=== PATIENT | male | born 1970 | race Caucasian/White ===

== ENCOUNTER 2019-01-11 10:45 | Emergency (ER) | payer BC ==
--- NOTE | 2019-01-11 11:12 | ED ---
HPI Chest Pain - HPI Summary HPI Summary: This patient is a 48 year old male presenting to [facility] with a chief complaint of intermittent chest pain since ten days ago. He reports SOB when he has the chest pain. He saw his and PCP did not have any findings, but to come here if it kept happening. He states it mostly happens at night when he is sleeping and shortly after he wakes up. He describes the pain as a burning pain and currently is not experiencing this pain. He has a Hx of GERD, and HTN. Both sides of his family have Cardiac Hx and his mother from an MA at his age. - History of Current Complaint Chief Complaint: EDChestPainROMI Time Seen by Provider: 01/11/19 10:55 Hx Obtained From: Patient Timing: Intermittent, Lasting Hours Initial Severity: Moderate Current Severity: None Pain Intensity: 0 Pain Scale Used: 0-10 Numeric Chest Pain Radiates: No Character: Burning - Allergy/Home Medications Allergies/Adverse Reactions: Allergies Allergy/AdvReac Type Severity Reaction Status Date / Time escitalopram [From Lexapro] Allergy Unknown Verified 01/11/19 10:47 Reaction Details Home Medications: Home Medications Lisinopril/HCTZ 10/12.5(NF) [Zestoretic 10/12.5(NF)] 12.5 mg PO DAILY 01/11/19 [ History Confirmed 01/11/19] Rosuvastatin (NF) [Crestor (NF)] 5 mg PO 1700 01/11/19 [History Confirmed ] PMH/Surg Hx/FS Hx/Imm Hx Endocrine/Hematology History: Reports: Hx Thyroid Disease Denies: Hx Diabetes Cardiovascular History: Reports: Hx Hypercholesterolemia, Hx Hypertension Denies: Hx Pacemaker/ICD, Hx Peripheral Vascular Disease Musculoskeletal History: Denies: Hx Arthritis, Hx Rheumatoid Arthritis, Hx Osteoporosis Sensory History: Denies: Hx Cataracts, Hx Contacts or Glasses, Hx Glaucoma, Hx Hearing Aid Opthamlomology History: Denies: Hx Cataracts, Hx Contacts or Glasses, Hx Glaucoma Neurological History: Denies: Hx Headaches, Hx Seizures, Hx Transient Ischemic Attacks (TIA) Psychiatric History: Reports: Hx Anxiety, Hx Panic Disorder Denies: Hx Depression - Surgical History Surgery Procedure, Year, and Place: EAR TUBES Infectious Disease History: No Infectious Disease History: Denies: Traveled Outside the [place] in Last 30 Days - Family History Known Family History: Positive: Cardiac Disease - Mother - Social History Alcohol Use: Occasionally Hx Substance Use: No Substance Use Type: Reports: None Review of Systems Positive: Chest Pain Positive: Shortness Of Breath All Other Systems Reviewed And Are Negative: Yes Physical Exam - Summary Physical Exam Summary: VITAL SIGNS: Reviewed. GENERAL: Patient is a well-developed and nourished MALE who is lying comfortable in the stretcher. Patient is not in any acute respiratory distress. HEAD AND FACE: No signs of trauma. No ecchymosis, hematomas or skull depressions. No sinus tenderness. EYES: PERRLA, EOMI x 2, No injected conjunctiva, no nystagmus. EARS: Hearing grossly intact. Ear canals and tympanic membranes are within normal limits. MOUTH: Oropharynx within normal limits. NECK: Supple, trachea is midline, no adenopathy, no JVD, no carotid bruit, no c- spine tenderness, neck with full ROM. CHEST: Symmetric, no tenderness at palpation LUNGS: Clear to auscultation bilaterally. No wheezing or crackles. CVS: Regular rate and rhythm, S1 and S2 present, no murmurs or gallops appreciated. ABDOMEN: Soft, non-tender. No signs of distention. No rebound no guarding, and no masses palpated. Bowel sounds are normal. EXTREMITIES: FROM in all major joints, no edema, no cyanosis or clubbing. NEURO: Alert and oriented x 3. No acute neurological deficits. Speech is normal and follows commands. SKIN: Dry and warm Triage Information Reviewed: Yes Vital Signs On Initial Exam: Initial Vitals Temp Pulse Resp BP Pulse Ox 97.4 F 93 18 171/96 97 01/11/19 10:48 01/11/19 10:48 01/11/19 10:48 01/11/19 10:48 01/11/19 10:48 Vital Signs Reviewed: Yes Diagnostics - Vital Signs Vital Signs Temp Pulse Resp BP Pulse Ox 01/11/19 10:48 97.4 F 93 18 171/96 97 - Laboratory Result Diagrams: 01/11/19 10:48 01/11/19 10:48 Lab Statement: Any lab studies that have been ordered have been reviewed, and results considered in the medical decision making process. - Radiology CXR Radiology Interpretation Completed By: Radiologist Summary of Radiographic Findings: No radiographic evidence for acute cardiopulmonary abnormality on this portable chest x-ray. ED Provider has reviewed this report. - EKG 1059 Cardiac Rate: Tachycardia EKG Rhythm: Sinus Tachycardia - [address] Segment: Normal Ectopy: None Summary of EKG Findings: Normal axis, no ST-elevations. Re-Evaluation - Re-Evaluation First Eval Re-Evaluation Time: 14:18 Comment: Discussed results and plan for discharge with patient. Chest Pain Course/Dx - Course Assessment/Plan: This patient is a 48-year-old male with past medical history significant for GERD, hypertension, and hypothyroidism. He presents to the emergency department with a chief complaint of having chest pain burning like pain every morning approximately 1.30 in the morning waking him up from his sleep. This the symptoms have been present for at least one week. He has seen his primary care physician Dr. Tin Lee to time this week where he thinks that the patient has GERD. Patient was placed in a manager cardiac cath, IV access was obtained. EKG shows a normal sinus rhythm without any ST elevation. 12:20 PM reassessment: Patient is lying comfortable, reports no chest pain and has no other complaints. Blood test results without any significant abnormality except for RBCs of 5.5, troponin #1 is 0.00. Chest x-ray impression: No radiographic evidence for acute cardiopulmonary abnormality on this portable chest x-ray. Second troponin 4 hours apart is also 0.00. The heart score is equal to 3 therefore has a low suspicion for coronary artery disease. The patient is not hypoxic or tachycardic and therefore have no suspicion for pulmonary embolism. Patient doesnt have any chest pain radiating to the back or he is not hypertensive therefore have no suspicion for dissection. Patient reports that all symptoms have resolved. Because the patient has no significant comorbidities and no family history of cardiovascular disease at his age the patient will be discharged home with follow up of PMD. I discussed all the findings and test results with the patient. Patient was instructed to return to the emergency room immediately if any of the symptoms return or worsens. Patient understands and agrees. Plan of care was discussed with the patient and patient understands and agrees. All questions were answered at patient satisfaction. There were no further complaints or concerns. PE before discharge : CVS: S1 and S2 present. No murmurs appreciated. Abdominal exam before discharge: Soft, non-tender. No signs of distention. No rebound no guarding, and no masses palpated. Bowel sounds are normal. Patient is alert and oriented x 3. Patient is hemodynamically stable. - Chest Pain Differential Diagnosis/HQI/PQRI: Acute MA, ACS, Angina, Aortic Aneurysm, CHF, Chest Wall, GI Disease, Lower Respiratory Infection - Diagnoses Provider Diagnoses: Atypical chest pain Discharge - Sign-Out/Discharge Documenting (check all that apply): Patient Departure - Discharge Patient Received Moderate/Deep Sedation with Procedure: No - Discharge Plan Condition: Stable Disposition: HOME Patient Education Materials: Chest Pain (ED) Referrals: Adria Soria MD [Medical Doctor] - Additional Instructions: Return to ED with any new or worsening symptoms. - Billing Disposition and Condition Condition: STABLE Disposition: Home - Attestation Statements Document Initiated by Crescencio: Yes Documenting Scribe: Markell Wolfe Provider For Whom Crescencio is Documenting (Include Credential): Jus Jacinto MD Scribe Attestation: Markell Drummond scribed for Jus Jacinto MD on 01/11/19 at 2059. Scribe Documentation Reviewed: Yes Provider Attestation: The documentation as recorded by the Markell zambrano accurately reflects the service I personally performed and the decisions made by , Jus Jacinto MD Status of Scribe Document: Viewed
--- OUTSIDE RECORDS SUMMARY | 2019-01-11 11:12 | XMS REPORT | Continuity of Care Document ---
:1970 External Reference #:[id number] Author Name YennyCarlos mooreidi Care Team Providers Name Role Phone Karen Zamarripa MD Primary Care Physician Unavailable Payers Date Identification Numbers Payment Provider Subscriber Effective: 2015 Policy Number: [id number] [employer] Anitha Byrd PayID: [id number] [address] [address] [place] [address] Effective: 2010 Policy Number: [id number] [place] Jamie Richards Onset: 2010 PayID: [id number] [id number] [place] [address] Onset: 2013 Policy Number: [facility] Insurance [facility] Jamie Richards [id number] PayID: [id number] [address] [address] [place] [address] Advance Directives Description No Information Available Problems Active Problems Provider Date Essential hypertension Adria Soria M.D.,FACP Onset: 07/31/2010 Atypical depressive disorder Adria Soria M.D.,FACP Onset: 01/30/2011 Chronic sinusitis Adria Soria M.D.,FACP Onset: 11/01/2011 Hypothyroidism Zainab Gutierrez, N.P. Onset: 11/27/2011 Pure hypercholesterolemia Zainab Gutierrez, N.P. Onset: 11/27/2011 Inactive Problems Tachycardia Clark Jensen M.D. Onset: 12/25/2011 Inactive: 11/24/2015 Palpitations Martín HenaoD. 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 Barajas (GI) Mixed hyperlipidemia Guru Sanchez M.D. Onset: 08/01/2016 Inactive: 08/13/2018 Family History Date Family Member(s) Observation Comments General Heart Disease General Cancer General Diabetes Father HX Of CAD Father VA x 2 Mother due to Mother Of () - Document: VA At Age 56 10/17/07 - Prog Note - Casandra Mother Mother With CABG At Age 48 Document: 10/17/07 - Prog Note - Casandra First Son Hemophilia First Son vonwillebrands First Daughter Hemophilia First Daughter vonwillebrand Siblings 2 First Brother Hypertension First Brother Hypercholesterolemia Maternal Grandmother due to Breast () - Document: Cancer 10/17/07 - Prog Note - Casandra Social History Type Date Description Comments Sex Unknown Marital Status Significant Other 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 Tobacco Use Start: Unknown End: Former Cigarette Smoker Quit April 2008 Unknown Smoking Status Reviewed: 12/31/18 Former Cigarette Smoker Quit April 2008 ETOH Use 08/13/2018 consumes 1-2 beers per day Recreational Drug Use Denies Drug Use Tobacco Use Start: Unknown End: Patient is a former Unknown smoker Exercise Type/Frequency Exercises sporadically Allergies, Adverse Reactions, Alerts Active Allergies Reaction Severity Comments Date Lexapro dizziness, lethargic 10/17/2009 Simvastatin myalgias 01/17/2017 Inactive Allergies NKDA 10/17/2007 Medications Active Medications SIG Qnty Indications Ordering Date Provider Levothyroxine Sodium Take one tablet 30tabs E03.9 Karen Zamarripa MD 2018 daily 137mcg Tablets Fluticasone Propionate 1 act each 16gm J01.90 Adria Wyman 03/06/2017 nostril twice Jorge Soria,FACP 50mcg/Act Suspension daily prn Clobetasol Propionate topical qd prn 30gm Adria Wyman 01/17/2017 E for RT Jorge Soria,FACP 0.05% Cream elbow/knee Rosuvastatin Calcium take 1 tablet by 90tabs Adria Wyman 01/17/2017 5mg mouth every Jorge Soria,FACP Tablets evening at bedtime Vitamin D 1 by mouth every dAria Wyman 11/24/2015 (Cholecalciferol) day Jorge Soria,FACP 1000Unit Capsules Lisinopril-Hydrochloro Take 1 Tablet By 90tabs I10 Adria Wyman 11/24/2015 thiazide Mouth Every Jorge Soria,FACP 10-12.5mg Morning Tablets Omeprazole take 1 capsule 90caps Nahed Kevin MD 07/12/2008 40mg Capsules by mouth every DR day Multiple Vitamin 1 po qd 100tabs Unknown Tablets History Medications Levothyroxine Sodium 1 by mouth every 90tabs E03.9 Nahed Kevin, 2017 - 150mcg day 12/31/2018 Tablets Amoxicillin/Clavulanate by mouth twice a 20tabs Adria Wyman 08/13/2018 - Potassium day Estella, 08/23/2018 875-125mg Tablets Mini.DMei,FACP Levothyroxine Sodium 1 by mouth every 90tabs E03.9 Adria Wyman 2017 - 137mcg day Estella, 08/13/2018 Tablets Jorge,FACP Amoxicillin/Clavulanate 1 by mouth twice a 20tabs L04.0 Guru 08/06/2017 - Potassium day Henrique, 08/16/2017 875-125mg Tablets M.D. Doxycycline Hyclate 1 by mouth twice a 20tabs J01.90 Adria Wyman 2016 - 100mg day [place]ella, 03/25/2017 Tablets Jorge,FACP Medrol medrol dosepack as 1pak Adria Wyman 03/15/2017 - 4mg Tablets directed Estella, 08/13/2018 Jorge,FACP Amoxicillin take 1 tabs 3x 30tabs J01.90 Zsofia 03/06/2017 - 500mg Tablets daily by mouth MARIAH Milian 03/15/2017 daily Azithromycin 2 tab today and 6tabs J01.90 Guru 08/01/2016 - 250mg Tablets then 1tab daily Pachika, 11/20/2016 Jorge Amoxicillin/Clavulanate 1 by mouth twice a 20tabs J20.9 Guru 06/29/2016 - Potassium day Laura, 08/01/2016 875-125mg Tablets Mini.Zamzam Vitamin D 1 cap by mouth per 8caps [place] 02/09/2015 - (Ergocalciferol) week x 8 weeks Jorge Koenig 11/24/2015 [id number] Capsules Azithromycin two tabs day one, 6tabs Iftikhar 02/08/2015 - 250mg Tablets one daily till Jorge Koenig 07/29/2015 gone Amoxicillin/Clavulanate 1 by mouth twice a 28tabs 461.8 Iftikhar 01/07/2015 - Potassium day Jorge Koenig 02/08/2015 875-125mg Tablets Meclizine HCL 1 tablet twice a 30tabs 386.30 Iftikhar 01/07/2015 - 12.5mg Tablets day, as needed Jorge Koenig 02/08/2015 Amoxicillin 1 tab every 12 14caps 461.0 Keegan Garrett, 07/26/2014 - 500mg Capsules hours for 7 days MAT 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 [place], 06/11/2018 Tablets labs need to be Jorge,ZION done harpal Amoxicillin 2 tabs po bid for 40tabs 473.8 Adria Wyman 09/17/2013 - 500mg Tablets 10 days [place], 09/27/2013 Jorge,FACP Fluticasone Propionate 1 spray each 16units 473.8 Adria Wyman 09/17/2013 - nostril in am [place], 09/25/2013 50mcg/Act Suspension Jorge,FACP Lovastatin Take 1 Tablet By 90tabs 272.0 Keegan Garrett, 08/13/2012 - 20mg Tablets Mouth AT Bedtime MAT PUNCHER 11/24/2015 Lisinopril take 1 tablet by 30tabs I10 Adria Wyman 03/13/2012 - 10mg Tablets mouth every day [place], 11/24/2015 Jorge,FACP Lisinopril 1 po qd 401.9 Adria Wyman 03/11/2012 - 10mg Tablets [place], 03/13/2012 Jorge,FACP Levothyroxine Sodium take 1-1/2 tablet 45tabs 244.9 Adria Wyman 2011 - 25mcg by mouth every [place], 10/08/2013 Tablets morning M.DMei,FACP Ativan 1/2-1 po bid prn 10tabs 785.0 Adria Wyman 02/22/2012 - 1mg Tablets [place], 09/25/2013 MOc,FACP Metoprolol Tartrate 1 po bid as needed 180tabs Adria Wyman 02/01/2012 - 25mg for palpitations [place], 09/25/2013 Tablets Jorge,FACP Levothyroxine Sodium take one tablet by 30tabs 244.9 Adria Wyman 2011 - 25mcg mouth in the [place], 02/22/2012 Tablets morning M.Zamzam,FACP Avelox take one pill by 14tabs Hattie 12/26/2011 - 400mg Tablets mouth daily for 7 [place] 12/26/2011 days on, N.P. Clarithromycin 1 po bid for 14 28tabs Adria Wyman 12/18/2011 - 500mg Tablets days [place], 12/26/2011 Jorge,FACP Vivotif Diane 1 cap PO qod x4 4caps Adria Wyman 11/29/2011 - DR Cap Capsules doses; give 1h [place], 12/18/2011 DR before meal w/ M.D.,FACP cold or lukewarm drink; avoid alcohol w/in 1h of each dose; Levothyroxine Sodium 1/2 tablet po qd 30tabs 244.9 Adria Wyman 2011 - 25mcg [place], 01/02/2012 Tablets Jorge,FACP Amoxicillin 1 tab po q8hr x 10 30tabs 382.9 Adria Wyman 11/27/2011 - 500mg Tablets days [place], 12/18/2011 Jorge,FACP Simvastatin take 1 tablet by 30tabs 272.0 Adria Wyman 11/27/2011 - 10mg Tablets mouth at bedtime [place], 08/13/2012 Jorge,FACP Chloroquine Phosphate 1 q week starting 7tabs V65.49 Adria Wyman 2011 - 500mg 1 wk before [place], 02/01/2012 Tablets travel, until 4 M.DMei,FACP wks after Zithromax 2 qd day 1 then 1 6tabs V65.49 Adria Wyman 11/01/2011 - 250mg Tablets po qday [place], 11/27/2011 Jorge,FACP Vitamin D Adria Wyman 01/30/2011 - [place], 12/25/2011 Jorge,FACP Ibuprofen tid prn 90tabs 723.1 Adria Wyman 09/07/2010 - 600mg Tablets [place], 11/08/2010 Jorge,FACP Hydrocodone/Acetaminophen 1 tablet po qid 50tabs 723.1 Adria Wyman 2009 - prn [place], 11/08/2010 5-325mg Tablets Jorge,FACP Budeprion SR 2 tabs po bid 120tabs 296.82 Adria Wyman 07/31/2010 - 100mg Tablets ER [place], 11/01/2011 12HR MOc,FACP Nortriptyline HCL 1 bid po 60caps 309.0 Adria Wyman 11/01/2009 - 25mg Capsules [place], 07/31/2010 Jorge,FACP Nasonex 2 spays each 1units 472.0 Adria Wyman 10/04/2009 - 50mcg/Act Suspension nostril daily [place], 09/17/2013 Jorge,FACP Lisinopril Take 1/2 Tablet By 30tabs 401.9 Adria Wyman 10/04/2009 - 10mg Tablets Mouth Once Daily [place], 03/11/2012 Jorge,FACP Amlodipine Besylate 1 po qd 30tabs 401.9 Adria Wyman 07/01/2009 - 10mg [place], 10/04/2009 Tablets Jorge,FACP Ciprofloxacin HCL si bid x 10 20tabs 530.81 Adria Wyman 12/22/2008 - 500mg Tablets days [place], 07/01/2009 Jorge,FACP Augmentin si bid x 14 28tabs 473.8 Adria Wyman 12/22/2008 - 875mg Tablets days [place], 10/04/2009 Jorge,YASMINEP Amlodipine 1 po qd 10units 401.9 Adria Wyman 12/22/2008 - 5mgM [place], 07/01/2009 Jorge,FACP Amoxicillin 1 tab po bid x 10 20tabs [place]an[place], 07/12/2008 - 875mg Tablets Zamzam Myers M.D. 12/22/2008 Wellbutrin SR 1 PO qd x 3 days 60tabs Adria Wyman 03/02/2008 - 150mg Tablets ER then 1 bid [place], 12/22/2008 12HR Jorge,FACP Potassium Chloride ER 1 po qd 30caps 401.9 Adria Wyman 01/07/2008 - 10Meq [place], 07/01/2009 Capsules ER Jorge,YASMINEP Chantix 1 po bid 60tabs 305.1 Adria Wyman 01/07/2008 - 1mg Tablets [place], 03/02/2008 Jorge,YASMINEP Hydrochlorothiazide 1 qd 90tabs 401.9 Adria Wyman 12/08/2007 - 12.5mg [place], 12/22/2008 Tablets Jorge,YASMINEP Chantix as directed 1Pack 305.1 Adria Wyman 12/08/2007 - Starting Month Pack [place], 01/07/2008 Tablets Jorge,FACP Triamcinolone Acetonide apply bid to 45Grams 782.1 Adria Wyman 2007 - 0.1% affected area prn [place], 11/01/2011 Cream Jorge,FACP Cefuroxime Axetil 1 tablet by mouth 20tabs Unknown - 250mg Tablets twice daily for 10 12/18/2011 days Biaxin 1 bid po 20tabs Unknown - 500mg Tablets 12/25/2011 Fish Oil 1 po qd Unknown - Capsules 01/07/2015 Vitamin D 1 po qod Unknown - 2000Unit 09/25/2013 Hyoscyamine Sulfate ER 1 tablet daily prn Unknown - 0.375mg 08/13/2018 Tablets ER 12HR Medications Administered in Office Medication SIG Qnty Indications Ordering Provider Date Depomedrol 80MG Bell Aguila M.D. 09/25/2013 Injection Immunizations CPT Code Status Date Vaccine Reaction Lot # [id number] Given 08/20/2018 Influenza Virus Vaccine, No reaction noted .. [id number] Quadrivalent, Split, hh Preservative Free [id number] Given 01/17/2017 Tdap - [id number] Tetanus/Diptheria/Acellula r Pertussis [id number] Given 09/17/2013 Fluvirin Im 3Yrs And Older [id number] 09780 Given 11/01/2011 Influenza Virus 3Yrs & [id number] Over [id number] Given 11/01/2011 Hepatitis A Vaccine Adult [id number] Dosage 69220 Given 07/31/2010 Influenza Virus 3Yrs & [id number] Over Vital Signs Date Vital Result Comment 12/31/2018 11:46am Height 71 inches 5'11" Weight 235.00 lb Heart Rate 103 /min BP Systolic Sitting 135 mmHg BP Diastolic Sitting 93 mmHg Body Temperature 98.4 F O2 % BldC Oximetry 97 % BMI (Body Mass Index) 32.8 kg/m2 12/12/2018 2:16pm Height 71 inches 5'11" Weight 232.00 lb Heart Rate 82 /min BP Systolic Sitting 140 mmHg BP Diastolic Sitting 86 mmHg Body Temperature 97.7 F O2 % BldC Oximetry 96 % BMI (Body Mass Index) 32.4 kg/m2 08/20/2018 4:26pm Height 71 inches 5'11" Weight 233.00 lb Heart Rate 82 /min BP Systolic 150 mmHg BP Diastolic 86 mmHg BP Systolic Recheck 128 mmHg BP Diastolic Recheck 86 mmHg O2 % BldC Oximetry 98 % BMI (Body Mass Index) 32.5 kg/m2 08/13/2018 9:26am Height 71 inches 5'11" Weight 233.00 lb Heart Rate 100 /min BP Systolic Sitting 128 mmHg BP Diastolic Sitting 82 mmHg Body Temperature 97.5 F O2 % BldC Oximetry 95 % BMI (Body Mass Index) 32.5 kg/m2 08/06/2017 11:14am Weight 228.25 lb Heart Rate 100 /min BP Systolic Sitting 136 mmHg BP Diastolic Sitting 82 mmHg Body Temperature 98.1 F O2 % BldC Oximetry 97 % 03/15/2017 2:40pm Weight 226.00 lb Heart Rate 80 /min BP Systolic Sitting 138 mmHg BP Diastolic Sitting 76 mmHg Body Temperature 98.0 F O2 % BldC Oximetry 98 % 03/06/2017 3:40pm Weight 225.00 lb Heart Rate 89 /min BP Systolic Sitting 160 mmHg BP Diastolic Sitting 86 mmHg Body Temperature 98.2 F O2 % BldC Oximetry 98 % 01/17/2017 3:23pm Height 70 inches 5'10" Weight 220.25 lb Heart Rate 95 /min BP Systolic Sitting 154 mmHg BP Diastolic Sitting 82 mmHg BP Systolic Recheck 118 mmHg BP Diastolic Recheck 82 mmHg Body Temperature 98.0 F O2 % BldC Oximetry 97 % BMI (Body Mass Index) 31.6 kg/m2 08/01/2016 1:23pm Weight 222.00 lb Heart Rate 72 /min BP Systolic Sitting 138 mmHg BP Diastolic Sitting 84 mmHg Respiratory Rate 15 /min Body Temperature 98.3 F O2 % BldC Oximetry 98 % 06/29/2016 3:40pm Height 71 inches 5'11" Weight 222.12 lb Heart Rate 88 /min BP Systolic Sitting 130 mmHg BP Diastolic Sitting 74 mmHg Body Temperature 97.8 F O2 % BldC Oximetry 98 % BMI (Body Mass Index) 31.0 kg/m2 03/02/2016 2:53pm Height 71 inches 5'11" Weight 225.00 lb Heart Rate 88 /min BP Systolic Sitting 132 mmHg BP Diastolic Sitting 80 mmHg O2 % BldC Oximetry 98 % BMI (Body Mass Index) 31.4 kg/m2 11/24/2015 10:23am Height 71 inches 5'11" Weight 229.38 lb Heart Rate 88 /min BP Systolic Sitting 130 mmHg BP Diastolic Sitting 94 mmHg Body Temperature 97.0 F O2 % BldC Oximetry 96 % BMI (Body Mass Index) 32.0 kg/m2 02/08/2015 10:53am Height 71 inches 5'11" Weight 226.50 lb Heart Rate 90 /min BP Systolic Sitting 136 mmHg BP Diastolic Sitting 80 mmHg Body Temperature 97.0 F O2 % BldC Oximetry 98 % BMI (Body Mass Index) 31.6 kg/m2 01/07/2015 3:11pm Height 71 inches 5'11" Weight 227.38 lb Heart Rate 100 /min BP Systolic Sitting 118 mmHg BP Diastolic Sitting 80 mmHg Body Temperature 99.6 F O2 % BldC Oximetry 98 % BMI (Body Mass Index) 31.7 kg/m2 07/26/2014 10:34am Weight 225.00 lb Heart Rate 77 /min BP Systolic Sitting 153 mmHg BP Diastolic Sitting 101 mmHg Body Temperature 98.2 F O2 % BldC Oximetry 98 % 10/08/2013 1:48pm Weight 210.00 lb Heart Rate 76 /min BP Systolic Sitting 138 mmHg BP Diastolic Sitting 78 mmHg 09/25/2013 1:30pm Height 71 inches 5'11" Weight 211.00 lb Heart Rate 81 /min BP Systolic 127 mmHg BP Diastolic 80 mmHg BMI (Body Mass Index) 29.4 kg/m2 09/18/2013 9:46am Height 71 inches 5'11" Weight 212.00 lb Heart Rate 73 /min BP Systolic 144 mmHg BP Diastolic 96 mmHg BMI (Body Mass Index) 29.6 kg/m2 09/17/2013 9:04am Weight 212.75 lb Heart Rate 74 /min BP Systolic Sitting 142 mmHg BP Diastolic Sitting 88 mmHg Body Temperature 97.7 F O2 % BldC Oximetry 98 % 02/22/2012 1:11pm Height 70 inches 5'10" Weight 209.00 lb Heart Rate 80 /min BP Systolic Sitting 130 mmHg BP Diastolic Sitting 84 mmHg BMI (Body Mass Index) 30.0 kg/m2 02/01/2012 4:03pm Height 70 inches 5'10" Weight 204.00 lb Heart Rate 76 /min BP Systolic Sitting 132 mmHg BP Diastolic Sitting 84 mmHg BMI (Body Mass Index) 29.3 kg/m2 01/18/2012 10:10am Height 70 inches 5'10" Weight 203.00 lb with coat and shoes Heart Rate 72 /min BP Systolic 138 mmHg BP Diastolic 70 mmHg BMI (Body Mass Index) 29.1 kg/m2 12/25/2011 2:22pm Height 70 inches 5'10" Weight 202.00 lb Heart Rate 76 /min BP Systolic Sitting 120 mmHg right arm, left arm 112/86 BP Diastolic Sitting 86 mmHg right arm, left arm 112/86 BP Systolic Standing 140 mmHg right arm BP Diastolic Standing 86 mmHg right arm BMI (Body Mass Index) 29.0 kg/m2 11/27/2011 1:46pm Height 70 inches 5'10" Weight 200.00 lb Heart Rate 92 /min BP Systolic Sitting 132 mmHg BP Diastolic Sitting 80 mmHg BMI (Body Mass Index) 28.7 kg/m2 11/13/2011 11:25am Height 70.5 inches 5'10.50" Weight 199.25 lb Heart Rate 72 /min BP Systolic Sitting 128 mmHg BP Diastolic Sitting 92 mmHg BMI (Body Mass Index) 28.2 kg/m2 11/01/2011 9:58am Height 70.25 inches 5'10.25" Weight 203.00 lb Heart Rate 76 /min BP Systolic Sitting 120 mmHg BP Diastolic Sitting 90 mmHg BMI (Body Mass Index) 28.9 kg/m2 01/30/2011 10:12am Height 71 inches 5'11" Weight 188.00 lb Heart Rate 70 /min BP Systolic Sitting 112 mmHg BP Diastolic Sitting 78 mmHg BMI (Body Mass Index) 26.2 kg/m2 11/15/2010 3:23pm Heart Rate 92 /min BP Systolic Sitting 124 mmHg BP Diastolic Sitting 80 mmHg 11/08/2010 10:22am Weight 188.00 lb Heart Rate 76 /min BP Systolic Sitting 118 mmHg BP Diastolic Sitting 80 mmHg 09/20/2010 4:12pm Weight 201.00 lb Heart Rate 86 /min BP Systolic Sitting 144 mmHg BP Diastolic Sitting 88 mmHg 09/07/2010 3:17pm Weight 205.00 lb Heart Rate 88 /min BP Systolic Sitting 126 mmHg BP Diastolic Sitting 84 mmHg 07/31/2010 10:39am Weight 202.00 lb Heart Rate 72 /min BP Systolic Sitting 124 mmHg BP Diastolic Sitting 86 mmHg 11/01/2009 12:55pm Weight 198.00 lb Heart Rate 80 /min BP Systolic Sitting 134 mmHg BP Diastolic Sitting 78 mmHg 10/04/2009 2:46pm Weight 200.00 lb Heart Rate 72 /min BP Systolic Sitting 140 mmHg BP Diastolic Sitting 88 mmHg 07/01/2009 10:04am Height 71 inches 5'11" Weight 198.75 lb Heart Rate 82 /min BP Systolic Sitting 135 mmHg BP Diastolic Sitting 82 mmHg Body Temperature 98.5 F BMI (Body Mass Index) 27.7 kg/m2 12/22/2008 2:36pm Height 71 inches 5'11" Weight 192.00 lb Heart Rate 70 /min BP Systolic Sitting 142 mmHg BP Diastolic Sitting 76 mmHg BMI (Body Mass Index) 26.8 kg/m2 07/12/2008 10:52am Height 71 inches 5'11" Weight 178.00 lb Heart Rate 76 /min BP Systolic Sitting 120 mmHg BP Diastolic Sitting 74 mmHg Body Temperature 98.3 F BMI (Body Mass Index) 24.8 kg/m2 01/07/2008 3:44pm Height 71 inches 5'11" Weight 179.00 lb Heart Rate 76 /min BP Systolic Sitting 120 mmHg BP Diastolic Sitting 80 mmHg BMI (Body Mass Index) 25.0 kg/m2 12/08/2007 3:56pm Height 71 inches 5'11" Weight 175.00 lb Heart Rate 66 /min BP Systolic Sitting 120 mmHg BP Diastolic Sitting 62 mmHg BMI (Body Mass Index) 24.4 kg/m2 11/07/2007 1:57pm Height 71 inches 5'11" Weight 175.00 lb Heart Rate 68 /min BP Systolic Sitting 152 mmHg BP Diastolic Sitting 80 mmHg BMI (Body Mass Index) 24.4 kg/m2 10/17/2007 10:46am Height 71 inches 5'11" Weight 173.00 lb Heart Rate 70 /min BP Systolic Sitting 122 mmHg BP Diastolic Sitting 82 mmHg BMI (Body Mass Index) 24.1 kg/m2 Results Test Date Facility Test Result H/L Range Note Laboratory test 12/09/2018 [facility] TSH 2.38 mcIU/mL N 0.34- 5.[address] ([place] [address] Stim Horm) [phone] Free T4 (Free Thyroxine) 1.16 ng/dL High 0.61-1.12 Factor 8 Profile 12/09/2018 [facility] Special Coag Performed [address] [place] [address] [phone] Coagulation Factor VIII Activi 73 % 55 - 200 2 von Willebrand Factor Antigen 69 % 55 - 200 3 VonWillibrand Factor Activity 61 % 55 - 200 4 von Willebrand Panel Inter See Comment 5 von Willebrand Panel Reviewed See Comment 6 Thyroid 08/05/2018 [facility] Thyroid Stim 7.9 mIU/L Abnormal 0.3-4.2 [address] Hormone [place], [place] [id number] [phone] Free T4 1.5 ng/dL 0.9 - 1.7 8 Thyroperoxidase Antibody 0.6 IU/mL <9.0 9 Lipid Profile 06/10/2018 [facility] Triglycerides 211 mg/dL 10 (Trig/Chol/HDL) [address] [place] [address] [phone] Cholesterol 171 mg/dL 11 HDL Cholesterol 33.4 mg/dL 12 LDL Cholesterol 95 mg/dL 13 Laboratory test 06/10/2018 [facility] TSH (Thyroid 11.24 High 0.34-5.60 14 finding [address] Stim Horm) mcIU/[place] [address] [phone] Basic Metabolic 06/10/2018 [facility] Sodium 139 mmol/L N 135- 145 Panel [address] [place] [address] [phone] Potassium 4.4 mmol/L N 3.5-5.0 Chloride 103 mmol/L N 101-111 Co2 Carbon Dioxide 30 mmol/L N 22-32 Anion Gap 6 mmol/L N 2-11 Glucose 95 mg/dL N 70-100 Blood Urea Nitrogen 20 mg/dL N 6-24 Creatinine 1.19 mg/dL High 0.67-1.17 BUN/Creatinine Ratio 16.8 N 8-20 Calcium 9.4 mg/dL N 8.6-10.3 Egfr Non- 65.5 >60 Egfr 79.3 >60 15 Laboratory test 01/15/2017 [facility] TSH (Thyroid 4.07 mcIU/mL N 0.34-5.60 16 finding [address] [facility] Stim Horm) [place] [address] [phone] Basic Metabolic 01/15/2017 [facility] Sodium 134 mmol/L N 133- 145 Panel [address] [place] [address] [phone] Potassium 4.5 mmol/L N 3.5-5.0 Chloride 100 mmol/L Low 101-111 Co2 Carbon Dioxide 28 mmol/L N 22-32 Anion Gap 6 mmol/L N 2-11 Glucose 92 mg/dL N 70-100 Blood Urea Nitrogen 25 mg/dL High 6-24 Creatinine 1.08 mg/dL N 0.67-1.17 BUN/Creatinine Ratio 23.1 High 8-20 Calcium 9.5 mg/dL N 8.6-10.3 Egfr Non- 73.6 N >60 Egfr 94.7 N >60 17 Lipid Profile 01/15/2017 [facility] Triglycerides 207 mg/dL N 18 (Trig/Chol/HDL) [address] [place], [place] [id number] [phone] Cholesterol 217 mg/dL N 19 HDL Cholesterol 35.1 mg/dL N 20 LDL Cholesterol 141 mg/dL N 21 Lipid Profile 07/26/2016 [facility] Triglycerides 163 mg/dL N 22 (Trig/Chol/HDL) [address] [place], [place] [id number] [phone] Cholesterol 228 mg/dL N 23 HDL Cholesterol 34.3 mg/dL N 24 LDL Cholesterol 161 mg/dL N 25 Laboratory test 02/24/2016 [facility] Surgical Interface SEE RESULT 26, [address] Order BELOW [place], [place] [id number] [phone] Laboratory test 02/24/2016 [facility] Clotest SEE RESULT [address] BELOW [place], [place] [id number] [phone] Lipid Profile 11/22/2015 [facility] Triglycerides 222 mg/dL N 29 (Trig/Chol/HDL) [address] [place], [place] [id number] [phone] Cholesterol 167 mg/dL N 30 HDL Cholesterol 33.7 mg/dL N 31 LDL Cholesterol 89 mg/dL N 32 Comp Metabolic Panel 11/22/2015 [facility] Sodium 136 mmol/L N 133-[address] [place] [address] [phone] Potassium 4.4 mmol/L N 3.5-5.0 Chloride 101 mmol/L N 101-111 Co2 Carbon Dioxide 29 mmol/L N 22-32 Anion Gap 6 mmol/L N 2-11 Glucose 96 mg/dL N 70-100 Blood Urea Nitrogen 21 mg/dL N 6-24 Creatinine 1.20 mg/dL High 0.67-1.17 BUN/Creatinine Ratio 17.5 N 8-20 Calcium 9.5 mg/dL N 8.6-10.3 Total Protein 7.2 g/dL N 6.4-8.9 Albumin 4.4 g/dL N 3.2-5.2 Globulin 2.8 g/dL N 2-4 Albumin/Globulin Ratio 1.6 N 1-3 Total Bilirubin 0.60 mg/dL N 0.2-1.0 Alkaline Phosphatase 41 U/L N 34-104 Alt 25 U/L N 7-52 Ast 19 U/L N 13-39 Egfr Non- 65.5 N >60 Egfr 84.2 N >60 33 Laboratory test 11/22/2015 [facility] TSH (Thyroid 4.38 ?IU/mL N 0.34-5.60 34 finding [address] [facility] Stim Horm) [place] [address] [phone] Vitamin D Total 25(Oh) 42.3 ng/mL N 30-50 Laboratory test 02/08/2015 [facility] Vitamin B12 413 pg/mL N 180-914 35 finding [address] [place] [address] [phone] Vitamin D Total 25(Oh) 28.3 ng/mL Low 30-50 Erythrocyte Sed Rate 7 mm/Hr N 0-14 Lipid Profile 02/08/2015 [facility] Triglycerides 280 mg/dL N 36 (Trig/Chol/HDL) [address] [place] [address] [phone] Cholesterol 200 mg/dL N 37 HDL Cholesterol 34.6 mg/dL N 38 LDL Cholesterol 109 mg/dL N 39 Urinalysis Profile 02/08/2015 [facility] Urine Color Yellow N [address] [place] [address] [phone] Urine Appearance Clear N Urine Specific [place] 1.014 N 1.010-1.030 Urine pH 6.0 N 5-9 Urine Urobilinogen Negative N Negative Urine Ketones Negative N Negative Urine Protein Negative N Negative Urine Leukocytes Negative N Negative Urine Blood Negative N Negative Urine Nitrite Negative N Negative Urine Bilirubin Negative N Negative Urine Glucose Negative N Negative Comp Metabolic Panel 02/08/2015 [facility] Sodium 137 mmol/L N 133-145 [address] [place] [address] [phone] Potassium 4.2 mmol/L N 3.5-5.0 Chloride 102 mmol/L N 101-111 Co2 Carbon Dioxide 29 mmol/L N 22-32 Anion Gap 6 mmol/L N 2-11 Glucose 90 mg/dL N 70-100 Blood Urea Nitrogen 14 mg/dL N 6-24 Creatinine 1.12 mg/dL N 0.67-1.17 BUN/Creatinine Ratio 12.5 N 8-20 Calcium 9.4 mg/dL N 8.6-10.3 Total Protein 7.3 g/dL N 6.4-8.9 Albumin 4.5 g/dL N 3.2-5.2 Globulin 2.8 g/dL N 2-4 Albumin/Globulin Ratio 1.6 N 1-3 Total Bilirubin 0.80 mg/dL N 0.2-1.0 Alkaline Phosphatase 38 U/L N 34-104 Alt 23 U/L N 7-52 Ast 23 U/L N 13-39 Egfr Non- 71.2 N >60 Egfr 91.6 N >60 40 Laboratory test 02/08/2015 [facility] TSH (Thyroid 3.40 ?IU/mL N 0.34-5.[address] Stim Horm) [place] [address] [phone] CBC Auto Diff 02/08/2015 [facility] White Blood 8.4 10^3/uL N 4.8-10.[address] [place] [address] [phone] Red Blood Count 5.16 10^6/uL N 4.0-5.4 Hemoglobin 15.4 g/dL N 14.0-18.0 Hematocrit 46 % N 42-52 Mean Corpuscular Volume 89 fL N 80-94 Mean Corpuscular Hemoglobin 30 pg N 27-31 Mean Corpuscular HGB Conc 34 g/dL N 31-36 Red Cell Distribution Width 13 % N 10.5-15 Platelet Count 224 10^3/uL N 150-450 Mean Platelet Volume 10 um3 N 7.4-10.4 Abs Neutrophils 5.1 10^3/uL N 1.5-7.7 Abs Lymphocytes 1.9 10^3/uL N 1.0-4.8 Abs Monocytes 1.0 10^3/uL High 0-0.8 Abs Eosinophils 0.5 10^3/uL N 0-0.6 Abs Basophils 0.1 10^3/uL N 0-0.2 Abs Nucleated RBC 0 10^3/uL N Granulocyte % 60.0 % N 38-83 Lymphocyte % 22.1 % Low 25-47 Monocyte % 11.5 % High 1-9 Eosinophil % 5.5 % N 0-6 Basophil % 0.9 % N 0-2 Nucleated Red Blood Cells % 0 N Basic Metabolic Panel 10/05/2013 [facility] Sodium 136 mmol/L 133-[address] [place] [address] [phone] Potassium 4.3 mmol/L 3.5-5.0 Chloride 102 mmol/L 101-111 Co2 Carbon Dioxide 29.0 mmol/L 22-32 Anion Gap 5.0 mmol/L 2-11 Glucose 81 mg/dL 70-100 Blood Urea Nitrogen 15 mg/dL 6-24 Creatinine 1.10 mg/dL 0.50-1.40 BUN/Creatinine Ratio 13.6 8-20 Calcium 9.9 mg/dL 8.1-9.9 Egfr Non- 73.4 >60 Egfr 94.4 >60 41 Lipid Profile 10/05/2013 [facility] Triglycerides 98 mg/dL 40 -200 (Trig/Chol/HDL) [address] [place] [address] [phone] Cholesterol 185 mg/dL Less than 200 HDL Cholesterol 43 mg/dL 40-60 42 Cholesterol/HDL Ratio 4.3 Average 1-4.44 LDL Cholesterol 122.4 High Less Than 100 43 Laboratory test 10/05/2013 [facility] TSH (Thyroid 1.80 0.34- 5.[address] Stimulating miu/[place] [address] Horm) [phone] Laboratory test 04/25/2012 [facility] TSH 3.26 0.34-5.[address] MIU/[place] [address] [phone] Thyroperoxidase Antibody 0.9 IU/mL Less Than 9.0 Laboratory test 03/11/2012 [facility] Cortisol,Saliva <50 ng/dL <[address] [place], [place] [id number] [phone] Laboratory test 03/10/2012 [facility] Cortisol,Saliva <50 ng/dL <100 [address] [place], [place] [address] [phone] Urine 02/25/2012 [facility] Metanephrine, Urine 99 () [address] mcg/24h [place], [place] [id number] [phone] Normetanephrine, Urine 336 mcg/24h () 48 Total Metanephrines, Urine 435 mcg/24h () 49 Urine Collection Duration 24 h () Urine Total Volume 2900 mL () 50 Catecholamine 24HR 02/25/2012 [facility] Urine Collection 24 h () Urine Fract [address] [place] [address] [phone] Urine Total Volume 2900 mL () Norepinephrine 49 mcg/24h 15-80 Epinephrine 3.2 mcg/24h 0.0-20.0 Dopamine 380 mcg/24h 65-400 51 Cortisol Free 02/25/2012 [facility] Cortisol, 75 mcg/24h Abnormal 3.5-45 24HR Urine [address] Free, [place] [address] [phone] Urine Collection Duration 24 h () Urine Total Volume 2900 mL () 52 CBC Auto Diff 12/24/2011 [facility] White Blood 9.0 CUMM 4.8- 10.[address] [place] [address] [phone] Red Cell Count 4.88 CUMM 4.6-6.2 Hemoglobin 15.4 g/dL 14.0-18.0 Hematocrit 44 % 42-52 Mean Corpuscular Volume 89 um3 80-94 Mean Corpuscular Hemoglob 32 pg High 27-31 Mean Corpuscular HGB Cone 35 g/dL 32-36 Redcell Distribution WDTH 12 % 10.5-15 Platelet Count 247 CUMM 150-450 Mean Platelet Volume 10.2 um3 7.4-10.4 Gran % 66.0 % 38-83 Lymph % 21.1 % Low 25-47 Mononuclear % 10.1 % High 1-9 Eosinophil % 2.3 % 0-6 Basophil % 0.5 % 0-2 Abs Lymphs 1.9 1.0-4.8 Abs Mononuclear 0.9 High 0-0.8 Absolute Neutrophil Count 6.0 1.5-7.7 Abs Eosinophils 0.2 0-0.6 Abs Basophils 0 0-0.2 Laboratory test 12/24/2011 [facility] BNP Evaluatr 32.0 pg/mL 0-[address] [place] [address] [phone] Comp Metabolic 12/24/2011 [facility] Sodium 138 mmol/L 135- [address] [place] [address] [phone] Potassium 3.8 mmol/L 3.5-5.0 Chloride 106 mmol/L 101-111 Co2 (Carbon Dioxide) 25.0 mmol/L 22-32 Anion Gap 7.0 mmol/L 2-11 53 Glucose 107 mg/dL High 70-100 BUN 15 mg/dL 6-24 Creatinine 1.2 mg/dL 0.50-1.40 One Over Creatinine 0.83 BUN/Creatinine Ratio 12.5 8-20 Calcium 9.2 mg/dL 8.1-9.9 Total Protein 6.8 GM/DL 6.2-8.1 Albumin 4.5 GM/DL 3.6-5.4 Globulin 2.3 GM/DL 2-4 Albumin/Globulin Ratio 2.0 1-3 Bilirubin Total 1.1 mg/dL 0.4-1.5 54 Alkaline Phosphatase 38 U/L Low 39-117 Alt (SGPT) 21 U/L 17-63 Ast (Sgot) 24 U/L 12-42 eGFR Non- 66.7 > 60 eGFR 85.8 > 60 55 Laboratory test 12/24/2011 [facility] Troponin-I 0 NG/ML 0- 0.06 56 finding [address] [place] [address] [phone] Thyroxine Free 0.78 ng/dL 0.61-1.24 T3 Total 1.41 NG/ML 0.5-1.7 TSH 6.26 MIU/ML High 0.34-5.60 C Reactive Protein < 0.5 mg/dL Less Than 0.5 CKMB 12/24/2011 [facility] CKMB In NG/ML 1.4 NG/ML 0.3-4.0 [address] [place] [address] [phone] % CKMB 2 %MB 0-9 57 Laboratory test 12/24/2011 [facility] Magnesium 2.2 mg/dL 1.7 -2.6 finding [address] [place] [address] [phone] CPK (Creatine Kinase) 79 U/L 0-200 Laboratory test 12/23/2011 [facility] Troponin-I 0 NG/ML 0- 0.06 58 finding [address] [place] [address] [phone] D Dimer Quantitative < 200 NG/ML Less Than 230 59 TSH 6.79 MIU/ML High 0.34-5.60 Comp Metabolic Panel 12/23/2011 [facility] Sodium 135 mmol/L 135-145 [address] [place] [address] [phone] Potassium 3.9 mmol/L 3.5-5.0 Chloride 102 mmol/L 101-111 Co2 (Carbon Dioxide) 25.0 mmol/L 22-32 Anion Gap 8.0 mmol/L 2-11 60 Glucose 150 mg/dL High 70-100 BUN 22 mg/dL 6-24 Creatinine 1.1 mg/dL 0.50-1.40 One Over Creatinine 0.90 BUN/Creatinine Ratio 20.0 8-20 Calcium 9.0 mg/dL 8.1-9.9 Total Protein 7.1 GM/DL 6.2-8.1 Albumin 4.4 GM/DL 3.6-5.4 Globulin 2.7 GM/DL 2-4 Albumin/Globulin Ratio 1.6 1-3 Bilirubin Total 1.0 mg/dL 0.4-1.5 61 Alkaline Phosphatase 48 U/L 39-117 Alt (SGPT) 24 U/L 17-63 Ast (Sgot) 27 U/L 12-42 eGFR Non- 73.8 > 60 eGFR 94.9 > 60 62 CBC Auto Diff 12/23/2011 [facility] White Blood 8.4 CUMM 4.8- 10.[address] [place] [address] [phone] Red Cell Count 4.82 CUMM 4.6-6.2 Hemoglobin 14.3 g/dL 14.0-18.0 63 Hematocrit 43 % 42-52 Mean Corpuscular Volume 89 um3 80-94 Mean Corpuscular Hemoglob 30 pg 27-31 64 Mean Corpuscular HGB Cone 34 g/dL 32-36 65 Redcell Distribution WDTH 12 % 10.5-15 Platelet Count 232 CUMM 150-450 Mean Platelet Volume 9.9 um3 7.4-10.4 Gran % 57.6 % 38-83 Lymph % 26.8 % 25-47 Mononuclear % 10.6 % High 1-9 Eosinophil % 4.3 % 0-6 Basophil % 0.7 % 0-2 Abs Lymphs 2.3 1.0-4.8 Abs Mononuclear 0.9 High 0-0.8 Absolute Neutrophil Count 4.8 1.5-7.7 Abs Eosinophils 0.4 0-0.6 Abs Basophils 0.1 0-0.2 66 Urine Drug 12/23/2011 [facility] Amphetamines NONE DETECTED None SCR ED & [address] Urine Screen [place] [address] [phone] Barbituates Urine Screen NONE DETECTED None Detect Benzodiazepine Ur Screen NONE DETECTED None Detect Cannabinoid Urine Screen NONE DETECTED None Detect Cocaine Metabolites Urine NONE DETECTED None Detect Opiates Urine Screen NONE DETECTED None Detect PCP Urine Screen NONE DETECTED None Detect 67 Urinalysis 12/23/2011 [facility] [place] [address] [phone] Appearance-Urine CLEAR Clear Specific [place]-Ur 1.012 1.010-1.030 Esterase-Urine NEGATIVE Negative Nitrite NEGATIVE Negative [id number]-Vq-THV NEGATIVE Negative Protein-Urine NEGATIVE Negative PH-Urine 6.5 5-9 Blood-Urine NEGATIVE Negative Ketones-Urine NEGATIVE Negative Bilirubin-Ur NEGATIVE Negative Glucose-Urine NEGATIVE Negative Laboratory test 12/23/2011 [facility] Troponin-I 0 NG/ML 0- 0.06 68 [place] [address] [phone] Laboratory test 11/27/2011 [facility] TSH 7.90 High 0.34-5.60 finding [facility] MIU/[place] [address] [phone] Thyroxine Free 0.69 ng/dL 0.61-1.24 Liver Function 11/27/2011 [facility] Total Protein 7.1 GM/DL 6.2-8.1 Panel [facility] [place] [address] [phone] Albumin 4.4 GM/DL 3.6-5.4 Globulin 2.7 GM/DL 2-4 Albumin/Globulin Ratio 1.6 1-3 Bilirubin Total 1.1 mg/dL 0.4-1.5 69 Bilirubin Direct 0.1 mg/dL 0.1-0.5 Indirect Bilirubin 1.0 mg/dL 0.3-1.0 70 Alkaline Phosphatase 42 U/L 39-117 Alt (SGPT) 17 U/L 17-63 Ast (Sgot) 21 U/L 12-42 Laboratory test 11/27/2011 [facility] CPK (Creatine 68 U/L 0- 200 finding [facility] Kinase) [place] [address] [phone] Laboratory test 11/14/2011 [facility] BUN 19 mg/dL 6-24 finding [address] [place] [address] [phone] Creatinine 11/14/2011 [facility] Creatinine 1.1 0.50-1.40 101 [facility] mg/[place] [address] [phone] One Over Creatinine 0.90 eGFR Non- 73.8 > 60 eGFR 94.9 > 60 71 Laboratory test 11/14/2011 [facility] PSA,Diagnostic 0.59 NG/ML 0-4 72 finding [address] [place] [address] [phone] Lipid Profile 11/13/2011 [facility] Triglyceride 140 mg/dL 40 -200 (Trig/Chol/HDL) [address] [place] [address] [phone] Cholesterol 228 mg/dL High Less Than 200 73 High Density Lipoprotein 38 mg/dL Low 40-60 74 Cholesterol/HDL Ratio 6.00 AVERAGE High 1-4.97 Low Density Lipoprotein 162 mg/dL High Less Than 100 75 CBC With Manual 11/13/2011 [facility] White Blood 6.5 CUMM 4.8-10.[address] [place] [address] [phone] Red Cell Count 5.00 CUMM 4.6-6.2 Hemoglobin 16.1 g/dL 14.0-18.0 Hematocrit 45 % 42-52 Mean Corpuscular Volume 90 um3 80-94 Mean Corpuscular Hemoglob 32 pg High 27-31 Mean Corpuscular HGB Cone 36 g/dL 32-36 Redcell Distribution WDTH 12 % 10.5-15 Platelet Count 233 CUMM 150-450 Mean Platelet Volume 10.4 um3 7.4-10.4 Polysegmented Neutrophil 68 % 38-83 Band Neutrophil 3 % 0-8 Lymphocyte 26 % 25-47 Eosinophil 2 % 0-6 Atypical Lymph 1 % 0-6 Absolute Neutrophil Count 4.6 RBC Morphology NORMAL Comp Metabolic Panel 11/13/2011 [facility] Sodium 138 mmol/L 135-145 [address] [place] [address] [phone] Potassium 4.5 mmol/L 3.5-5.0 Chloride 104 mmol/L 101-111 Co2 (Carbon Dioxide) 27.0 mmol/L 22-32 Anion Gap 7.0 mmol/L 2-11 76 Glucose 99 mg/dL 70-100 BUN 16 mg/dL 6-24 Creatinine 1.3 mg/dL 0.50-1.40 One Over Creatinine 0.76 BUN/Creatinine Ratio 12.3 8-20 Calcium 9.1 mg/dL 8.1-9.9 Total Protein 7.2 GM/DL 6.2-8.1 Albumin 4.8 GM/DL 3.6-5.4 Globulin 2.4 GM/DL 2-4 Albumin/Globulin Ratio 2.0 1-3 Bilirubin Total 1.2 mg/dL 0.4-1.5 77 Alkaline Phosphatase 42 U/L 39-117 Alt (SGPT) 23 U/L 17-63 Ast (Sgot) 22 U/L 12-42 eGFR Non- 60.8 > 60 eGFR 78.2 > 60 78 Laboratory test 11/13/2011 [facility] Thyroxine Free 0.63 ng/dL 0.61-1.[address] [place] [address] [phone] TSH 8.91 MIU/ML High 0.34-5.60 CBC Auto Diff 11/12/2011 [facility] White Blood 7.4 CUMM 4.8- 10.[address] [place] [address] [phone] Red Cell Count 4.87 CUMM 4.6-6.2 Hemoglobin 15.4 g/dL 14.0-18.0 Hematocrit 44 % 42-52 Mean Corpuscular Volume 90 um3 80-94 Mean Corpuscular Hemoglob 32 pg High 27-31 Mean Corpuscular HGB Cone 35 g/dL 32-36 Redcell Distribution WDTH 12 % 10.5-15 Platelet Count 249 CUMM 150-450 Mean Platelet Volume 9.6 um3 7.4-10.4 Gran % 63.8 % 38-83 Lymph % 19.7 % Low 25-47 Mononuclear % 11.7 % High 1-9 Eosinophil % 4.4 % 0-6 Basophil % 0.4 % 0-2 Abs Lymphs 1.4 1.0-4.8 Abs Mononuclear 0.9 High 0-0.8 Absolute Neutrophil Count 4.7 1.5-7.7 Abs Eosinophils 0.3 0-0.6 Abs Basophils 0 0-0.2 79 Comp Metabolic Panel 11/12/2011 [facility] Sodium 134 mmol/L Low 135-145 [address] [place] [address] [phone] Potassium 4.3 mmol/L 3.5-5.0 Chloride 103 mmol/L 101-111 Co2 (Carbon Dioxide) 26.0 mmol/L 22-32 Anion Gap 5.0 mmol/L 2-11 80 Glucose 102 mg/dL High 70-100 BUN 14 mg/dL 6-24 Creatinine 1.1 mg/dL 0.50-1.40 One Over Creatinine 0.90 BUN/Creatinine Ratio 12.7 8-20 Calcium 9.5 mg/dL 8.1-9.9 Total Protein 7.6 GM/DL 6.2-8.1 Albumin 4.6 GM/DL 3.6-5.4 Globulin 3.0 GM/DL 2-4 Albumin/Globulin Ratio 1.5 1-3 Bilirubin Total 1.1 mg/dL 0.4-1.5 81 Alkaline Phosphatase 43 U/L 39-117 Alt (SGPT) 23 U/L 17-63 Ast (Sgot) 24 U/L 12-42 eGFR Non- 73.8 > 60 eGFR 94.9 > 60 82 Laboratory test 11/12/2011 [facility] CPK (Creatine 75 U/L 0- [address] Kinase) [place] [address] [phone] CKMB 11/12/2011 [facility] CKMB In NG/ML 1.5 NG/ML 0.3-4.0 [address] [place] [address] [phone] % CKMB 2 %MB 0-9 83 Laboratory test 11/12/2011 [facility] Hemoglobin A1c 5.3 % Less Than [address] 6.0 [place] [address] [phone] Urinalysis 11/08/2010 [facility] Ua Color YELLOW Yellow W/Microscopic [address] [place] [address] [phone] Appearance-Urine CLEAR Clear Specific [place]-Ur 1.025 1.010-1.030 Esterase-Urine NEGATIVE Negative Nitrite NEGATIVE Negative Ihixkelsgrzh-Zr-HDP NEGATIVE Negative Protein-Urine NEGATIVE Negative PH-Urine 6.0 5-9 Blood-Urine NEGATIVE Negative Ketones-Urine NEGATIVE Negative Bilirubin-Ur NEGATIVE Negative Glucose-Urine NEGATIVE Negative WBC-Urine 0-2 0-5 RBC-Urine NONE SEEN 0-2 Epith Cells-Ur RARE None Amorphous Sed-U 2+ None Vitamin D, 25 09/14/2010 [facility] 25-Hydroxy Vitamin <4.0 ng/ mL () Hydroxy [address] D[address] [place] [address] [phone] 25-Hydroxy Vitamin D3 27 ng/mL () 25-Hydroxy Vitamin D Total 27 ng/mL () 85 Laboratory 09/14/2010 [facility] Von Willebrand 53 % Abnormal 55-200 [address] [place] [address] [phone] Lipid Profile 09/14/2010 [facility] Triglyceride 138 40-200 (Trig/Chol/HDL [address] mg/dL ) [place] [address] [phone] Cholesterol 225 mg/dL High Less Than 200 87 High Density Lipoprotein 33 mg/dL Low 40-60 88 Cholesterol/HDL Ratio 6.82 AVERAGE High 1-4.97 Low Density Lipoprotein 164 mg/dL High Less Than 100 89 Basic Metabolic Panel 09/14/2010 [facility] Sodium 135 mmol/L 135-[address] [place] [address] [phone] Potassium 4.3 mmol/L 3.5-5.0 Chloride 103 mmol/L 101-111 Co2 (Carbon Dioxide) 26.0 mmol/L 22-32 Anion Gap 6.0 mmol/L 2-11 90 Glucose 85 mg/dL 70-100 BUN 19 mg/dL 6-24 Creatinine 0.90 mg/dL 0.50-1.40 One Over Creatinine 1.10 BUN/Creatinine Ratio 21.1 High 8-20 Calcium 9.5 mg/dL 8.1-9.9 eGFR Non- 99.8 > 60 eGFR 120.8 > 60 91 Apolipoprotein A1 09/14/2010 [facility] Apolipoprotein A1 129 106-[address] mg/[place] [address] [phone] Apolipoprotein B 126 mg/dL Abnormal 48-124 92 Laboratory test 09/14/2010 [facility] C Reactive 2.3 mg/L < 7.[address] [place] [address] Sensit [phone] Lipid Profile 10/04/2009 [facility] Triglyceride 118 mg/dL 40 -200 (Trig/Chol/HDL) [address] [place], [place] [address] [phone] Cholesterol 204 mg/dL High Less Than 200 94 High Density Lipoprotein 39 mg/dL Low 40-60 95 Cholesterol/HDL Ratio 5.23 AVERAGE High 1-4.97 Low Density Lipoprotein 141 mg/dL High Less Than 100 96 Laboratory test 10/04/2009 [facility] Lyme Disease Negative Negative [address] [place] [address] [phone] Basic Metabolic 10/04/2009 [facility] Sodium 138 mmol/L 135- [address] [place] [address] [phone] Potassium 4.1 mmol/L 3.5-5.0 Chloride 103 mmol/L 101-111 Co2 (Carbon Dioxide) 27.0 mmol/L 22-32 Anion Gap 8.0 mmol/L 2-11 98 Glucose 89 mg/dL 70-100 99 BUN 15 mg/dL 6-24 Creatinine 1.10 mg/dL 0.50-1.40 One Over Creatinine 0.90 BUN/Creatinine Ratio 13.6 8-20 Calcium 9.6 mg/dL 8.1-9.9 100 eGFR Non- 79.6 > 60 eGFR 96.3 > 60 101 CBC With Manual 10/04/2009 [facility] White Blood 7.8 CUMM 4.8-10.[address] [place] [address] [phone] Red Cell Count 4.93 CUMM 4.6-6.2 Hemoglobin 15.3 g/dL 14.0-18.0 Hematocrit 44 % 42-52 Mean Corpuscular Volume 90 um3 80-94 Mean Corpuscular Hemoglob 31 pg 27-31 Mean Corpuscular HGB Cone 35 g/dL 32-36 Redcell Distribution WDTH 13 % 10.5-15 Platelet Count 248 CUMM 150-450 Mean Platelet Volume 9.6 um3 7.4-10.4 Polysegmented Neutrophil 56 % 38-83 Lymphocyte 28 % 25-47 Monocyte 10 % 0-13 Eosenophil 5 % 0-6 Basophil 1 % 0-2 Absolute Neutrophil Count 4.3 RBC Morphology NORMAL Tick 01/14/2009 [facility] Tick TEST [address] Identification RESULT [place] [address] RETU <SEE [phone] NOTE> Basic Metabolic 01/07/2008 [facility] Sodium 134 Low 135 [address] mmol/L -14 [place] [address] 5 [phone] Potassium 4.4 mmol/L 3.5-5.0 Chloride 99 mmol/L Low 101-111 Co2 (Carbon Dioxide) 26.0 mmol/L 22-32 Anion Gap 9.0 mmol/L 2-11 104 Glucose 52 mg/dL Low 70-105 BUN 22 mg/dL 6-24 Creatinine 1.1 mg/dL 0.5-1.4 One Over Creatinine 0.90 BUN/Creatinine Ratio 20.0 8-20 Calcium 8.6 mg/dL Low 8.7-10.2 Lipid Profile 10/14/2007 [facility] Cholesterol/HDL 4.53 1- 4.97 105 (Trig/Chol/HDL) [address] Ratio AVERAGE [place] [address] [phone] Cholesterol 195 mg/dL Less Than 200 106 Triglyceride 112 mg/dL 40-200 High Density Lipoprotein 43 mg/dL 40-60 Low Density Lipoprotein 130 mg/dL High Less Than 100 107 Basic Metabolic 10/14/2007 [facility] One Over Creatinine 0.[address] [place] [address] [phone] Anion Gap 3.0 mmol/L 2-11 108 BUN 21 mg/dL 6-24 Calcium 9.4 mg/dL 8.7-10.2 Chloride 103 mmol/L 101-111 Co2 (Carbon Dioxide) 32.0 mmol/L 22-32 Glucose 94 mg/dL 70-105 Potassium 4.3 mmol/L 3.5-5.0 Sodium 138 mmol/L 135-145 BUN/Creatinine Ratio 19.1 8-20 Creatinine 1.1 mg/dL 0.5-1.4 1 Test Performed by: [facility] - [address] [address] 2 ADDITIONAL INFORMATION This test has been modified from the chucking and boring machine operator's instructions. Its performance characteristics were determined by [facility] in a manner consistent with CLIA requirements. This test has not been cleared or approved by the U.S. Food and Drug Administration. 3 ADDITIONAL INFORMATION This test has been modified from the chucking and boring machine operator's instructions. Its performance characteristics were determined by [facility] in a manner consistent with CLIA requirements. This test has not been cleared or approved by the U.S. Food and Drug Administration. 4 ADDITIONAL INFORMATION This test has been modified from the chucking and boring machine operator's instructions. Its performance characteristics were determined by [facility] in a manner consistent with CLIA requirements. This test has not been cleared or approved by the U.S. Food and Drug Administration. 5 IMPRESSION: No definite laboratory evidence of von Willebrand disease (VWD); see comments and suggest clinical correlation. Consider repeat testing if clinically indicated. COMMENTS: The levels of von Willebrand factor (VWF) antigen and VWF activity [latex immunoassay] are low normal. Normal factor VIII coagulant activity. Note: Apparently normal individuals of blood group "O" may have somewhat lower factor VIII and von Willebrand factor (VWF) than individuals of other blood groups, such that (for example) those of group "O" may have VWF antigen as low as 40-50%, whereas normals of nongroup "O" generally have VWF antigen above 60-70%. Suggest clinical correlation. Note: VWF antigen and/or VWF latex immunoassay activity and/or factor VIII may be increased above baseline levels by acute or chronic inflammation, stress or adrenergic stimuli, or estrogen and oral contraceptive (OCP) therapy, liver disease or recent infusion of plasma, cryoprecipitate, desmopressin (DDAVP) or VWF concentrates and mask the diagnosis of mild von Willebrand disease (VWD). 6 RESULT: Bhavik Tracey M.D., Ph.D. Test Performed by: [address] [address] 7 Test Performed by: [facility] [place] [address] 8 Test Performed by: [facility] [address] 9 Test Performed by: [place] [address] 10 Desirable: <150 Borderline High: 150-199 High: 200-499 Very High: >500 11 Desirable: <200 Borderline High: 200-239 High: >239 12 Low: <40 Desirable: 40-60 High: >60 13 Desirable: <100 Near Optimal: 100-129 Borderline High: 130-159 High: 160-189 Very High: >189 14 FASTING 10 HOUR 15 Because ethnic data is not always readily available, this report includes an eGFR for both -Americans and non- Americans. The National Kidney Disease Education Program (NKDEP) does not endorse the use of the MDRD equation for patients that are not between the ages of 18 and 70, are , have extremes of body size, muscle mass, or nutritional status, or are non- or non-. According to the National Kidney Foundation, irrespective of diagnosis, the stage of the disease is based on the level of kidney function: Stage Description GFR(mL/min/1.73 m(2)) 1 Kidney damage with normal or decreased GFR 90 2 Kidney damage with mild decrease in GFR 60-89 3 Moderate decrease in GFR 30-59 4 Severe decrease in GFR 15-29 5 Kidney failure <15 (or dialysis) 16 FASTING 10 HOUR 17 Because ethnic data is not always readily available, this report includes an eGFR for both -Americans and non- Americans. The National Kidney Disease Education Program (NKDEP) does not endorse the use of the MDRD equation for patients that are not between the ages of 18 and 70, are , have extremes of body size, muscle mass, or nutritional status, or are non- or non-. According to the National Kidney Foundation, irrespective of diagnosis, the stage of the disease is based on the level of kidney function: Stage Description GFR(mL/min/1.73 m(2)) 1 Kidney damage with normal or decreased GFR 90 2 Kidney damage with mild decrease in GFR 60-89 3 Moderate decrease in GFR 30-59 4 Severe decrease in GFR 15-29 5 Kidney failure <15 (or dialysis) 18 Desirable <150 Borderline high 150-199 High 200-499 Very High >500 19 Desirable <200 Borderline high 200-239 High >239 20 Low <40 Desirable: 40-60 High: >60 21 Desirable: <100 mg/dL Near Optimal: 100-129 mg/dL Borderline High: 130-159 mg/dL High: 160-189 mg/dL Very High: >189 mg/dL 22 Desirable <150 Borderline high 150-199 High 200-499 Very High >500 23 Desirable <200 Borderline high 200-239 High >239 24 Low <40 Desirable: 40-60 High: >60 25 Desirable: <100 mg/dL Near Optimal: 100-129 mg/dL Borderline High: 130-159 mg/dL High: 160-189 mg/dL Very High: >189 mg/dL 26 [id number] 27 SEE RESULT BELOW Name: KAYLAMUSAJAMIE F : [address]: Eriberto Barajas MD Acct: [id number] Unit: [id number] AGE: 45 Location: [facility] Re02/24/16 SEX: M Status: REG REF SPEC: [id number] SATURNINO: 02/24/16-1033 [facility] DR: Eriberto Barajas MD REQ: [id number] RECD: 02/24/16 STATUS: MISBAH BLAIR DR: Adria Soria MD _ ORDERED: LEVEL IV COMMENTS: [id number] FINAL DIAGNOSIS Gastroesophageal junction, biopsy: -- Squamous and columnar mucosa with chronic inflammation. -- Negative for intestinal metaplasia and dysplasia. 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 Colonoscopy to terminal ileum - normal. Internal hemorrhoids. Conclusions/Plan: Ten years. GROSS DESCRIPTION The specimen is received in formalin labeled, [place] Biopsies, and consists of a 0.4 x 0.2 x 0.1 cm hutchison-white irregular soft tissue fragment, which is submitted entirely in one cassette. Signed (signature on file) Kya Ritchie MD 1115 END OF REPORT * ML=Testing performed at Main Lab DEPARTMENT OF PATHOLOGY, [address] [place] [address] Matt Vera M.D. Director [facility] # [id number] 28 SEE RESULT BELOW Name: MUSA RICHARDSNATALIE Flores : [address]: Eriberto Barajas MD Acct: [id number] Unit: [id number] AGE: 45 Location: [facility] Re02/24/16 SEX: M Status: REG REF SPEC: [id number] SATURNINO: 02/24/16-1030 [facility] DR: Eriberto Barajas MD REQ: [id number] RECD: 02/24/16 STATUS: JAMA BLAIR DR: Adria Soria MD _ SOURCE: GAS ANTRUM SPDESC: ORDERED: Clotest Procedure Result Reported Site Clotest Final 02/25/16723 ML Clotest Negative * ML - MAIN LAB ([facility]) . END OF REPORT * ML=Testing performed at Main Lab DEPARTMENT OF PATHOLOGY, [address] [place] [id number] Matt Vera M.D. Director [facility] # [id number] 29 Desirable <150 Borderline high 150-199 High 200-499 Very High >500 30 Desirable <200 Borderline high 200-239 High >239 31 Low <40 Desirable: 40-60 High: >60 32 Desirable: <100 mg/dL Near Optimal: 100-129 mg/dL Borderline High: 130-159 mg/dL High: 160-189 mg/dL Very High: >189 mg/dL 33 Because ethnic data is not always readily available, this report includes an eGFR for both -Americans and non- Americans. The National Kidney Disease Education Program (NKDEP) does not endorse the use of the MDRD equation for patients that are not between the ages of 18 and 70, are , have extremes of body size, muscle mass, or nutritional status, or are non- or non-. According to the National Kidney Foundation, irrespective of diagnosis, the stage of the disease is based on the level of kidney function: Stage Description GFR(mL/min/1.73 m(2)) 1 Kidney damage with normal or decreased GFR 90 2 Kidney damage with mild decrease in GFR 60-89 3 Moderate decrease in GFR 30-59 4 Severe decrease in GFR 15-29 5 Kidney failure <15 (or dialysis) 34 FASTING 10 HOUR 35 Normal Range 180 to 914 Indeterminate Range 145 to 180 Deficient Range <145 36 Desirable <150 Borderline high 150-199 High 200-499 Very High >500 37 Desirable <200 Borderline high 200-239 High >239 38 Low <40 Desirable: 40-60 High: >60 39 Desirable: <100 mg/dL Near Optimal: 100-129 mg/dL Borderline High: 130-159 mg/dL High: 160-189 mg/dL Very High: >189 mg/dL 40 Because ethnic data is not always readily available, this report includes an eGFR for both -Americans and non- Americans. The National Kidney Disease Education Program (NKDEP) does not endorse the use of the MDRD equation for patients that are not between the ages of 18 and 70, are , have extremes of body size, muscle mass, or nutritional status, or are non- or non-. According to the National Kidney Foundation, irrespective of diagnosis, the stage of the disease is based on the level of kidney function: Stage Description GFR(mL/min/1.73 m(2)) 1 Kidney damage with normal or decreased GFR 90 2 Kidney damage with mild decrease in GFR 60-89 3 Moderate decrease in GFR 30-59 4 Severe decrease in GFR 15-29 5 Kidney failure <15 (or dialysis) 41 Because ethnic data is not always readily available, this report includes an eGFR for both -Americans and non- Americans. The National Kidney Disease Education Program (NKDEP) does not endorse the use of the MDRD equation for patients that are not between the ages of 18 and 70, are , have extremes of body size, muscle mass, or nutritional status, or are non- or non-. According to the National Kidney Foundation, irrespective of diagnosis, the stage of the disease is based on the level of kidney function: Stage Description GFR(mL/min/1.73 m(2)) 1 Kidney damage with normal or decreased GFR 90 2 Kidney damage with mild decrease in GFR 60-89 3 Moderate decrease in GFR 30-59 4 Severe decrease in GFR 15-29 5 Kidney failure <15 (or dialysis) 42 HDL Interpretation: Undesirable: High Risk: Less than 40 mg/dL Desirable: Low Risk: Greater than 60 mg/dL 43 LDL Interpretation: Low Risk Optimal Level: LDL Less than 100 mg/dL Near or Above Optimal: LDL 100-129 mg/dL Borderline High Risk: LDL 130-159 mg/dL High Risk: LDL 160-189 mg/dL Very High Risk: LDL Greater than 189 mg/dL 44 PT IS FASTING 45 Test Performed by: [facility] [place] [address] Quality Manager: Shannen Bravo, Ph.D. 46 Test Performed by: [facility] [place] [address] Quality Manager: Shannen Bravo, Ph.D. 47 -- REFERENCE VALUE -- 44-261 (Normotensive) <400 (Hypertensive) 48 -- REFERENCE VALUE -- 119-451 (Normotensive) <900 (Hypertensive) 49 -- REFERENCE VALUE -- 211-646 (Normotensive) <1300 (Hypertensive) 50 Test Performed by: [facility] [address] [place] [address] Quality Manager: Max Luis III, M.D. 51 Test Performed by: [facility] [address] [place] [address] Quality Manager: Max Luis III, M.D. 52 Test Performed by: [facility] [address] [place] [address] Quality Manager: Max Luis III, M.D. 53 Anion gap measurement may be of limited value in the presence of any alkalosis, especially in a combined acid base disorder. . 54 A metabolite of Naproxen, O-desmethylnaproxen, has been shown to interfere with the Jendrassik-López method for measuring total bilirubin. Samples from patients who have taken Naproxen have shown spurious elevation in total bilirubin levels. 55 Because ethnic data is not always readily available, this report includes an eGFR for both -Americans and non- Americans. The National Kidney Disease Education Program (NKDEP) does not endorse the use of the MDRD equation for patients that are not between the ages of 18 and 70, are , have extremes of body size, muscle mass, or nutritional status, or are non- or non-. According to the National Kidney Foundation, irrespective of diagnosis, the stage of the disease is based on the level of kidney function: Stage Description GFR(mL/min/1.73 m(2)) 1 Kidney damage with normal or decreased GFR 90 2 Kidney damage with mild decrease in GFR 60-89 3 Moderate decrease in GFR 30-59 4 Severe decrease in GFR 15-29 5 Kidney failure <15 (or dialysis) 56 New Reference Range and Interpretation effective 06/12/2002 TnI (ng/ml) INTERPRETATION Less Than 0.06 ng/mL NOT SUPPORTIVE OF DIAGNOSIS OF [place] 0.06 - 0.50 ng/ml INDETERMINATE: SUGGEST SERIAL STUDIES IF CLINICALLY INDICATED. Greater than 0.5 ng/mL CONSISTENT WITH DIAGNOSIS OF VA . 57 INTERPRETATION %CK-MB < 5% NOT SUPPORTIVE OF DIAGNOSIS OF [place] 5 - <10% INDETERMINATE; SUGGEST SERIAL STUDIES IF CLINICALLY INDICATED 10% OR > CONSISTENT WITH DIAGNOSIS OF [place] . 58 New Reference Range and Interpretation effective 06/12/2002 TnI (ng/ml) INTERPRETATION Less Than 0.06 ng/mL NOT SUPPORTIVE OF DIAGNOSIS OF [place] 0.06 - 0.50 ng/ml INDETERMINATE: SUGGEST SERIAL STUDIES IF CLINICALLY INDICATED. Greater than 0.5 ng/mL CONSISTENT WITH DIAGNOSIS OF VA . 59 Please note: The following may produce a false positive D Dimer test: - Rheumatoid factor greater than 1400 IU/ml - Plasma hemoglobin greater than 0.5 gm/dl - Bilirubin greater than 18 mg/dl - Triglycerides greater than 1327 mg/dl - FDP greater than 10 ug/ml . 60 Anion gap measurement may be of limited value in the presence of any alkalosis, especially in a combined acid base disorder. . 61 A metabolite of Naproxen, O-desmethylnaproxen, has been shown to interfere with the Jendrassik-[place] method for measuring total bilirubin. Samples from patients who have taken Naproxen have shown spurious elevation in total bilirubin levels. 62 Because ethnic data is not always readily available, this report includes an eGFR for both -Americans and non- Americans. The National Kidney Disease Education Program (NKDEP) does not endorse the use of the MDRD equation for patients that are not between the ages of 18 and 70, are , have extremes of body size, muscle mass, or nutritional status, or are non- or non-. According to the National Kidney Foundation, irrespective of diagnosis, the stage of the disease is based on the level of kidney function: Stage Description GFR(mL/min/1.73 m(2)) 1 Kidney damage with normal or decreased GFR 90 2 Kidney damage with mild decrease in GFR 60-89 3 Moderate decrease in GFR 30-59 4 Severe decrease in GFR 15-29 5 Kidney failure <15 (or dialysis) 63 RESULT CORRECTED FOR LIPEMIA 64 RESULT CORRECTED FOR LIPEMIA 65 RESULT CORRECTED FOR LIPEMIA 66 H H Check Failed 67 THE URINE SPECIMEN WAS TESTED AT THE LISTED CUTOFFS: DRUG CLASS TEST LEVEL (NG/ML) AMPHETAMINES 300 BARBITUATES 200 BENZODIAZEPINE METABOLITES 200 COCAINE METABOLITES 300 CANNABINOIDS 25 OPIATES 200 PCP 25 THIS IS A SCREENING PROCEDURE. POSITIVE RESULTS ARE NOT CONFIRMED. SPECIMEN WAS RECEIVED WITHOUT CHAIN OF CUSTODY. RESULTS SHOULD BE USED FOR MEDICAL PURPOSES ONLY. . 68 New Reference Range and Interpretation effective 06/12/2002 TnI (ng/ml) INTERPRETATION Less Than 0.06 ng/mL NOT SUPPORTIVE OF DIAGNOSIS OF VA 0.06 - 0.50 ng/ml INDETERMINATE: SUGGEST SERIAL STUDIES IF CLINICALLY INDICATED. Greater than 0.5 ng/mL CONSISTENT WITH DIAGNOSIS OF VA . 69 A metabolite of Naproxen, O-desmethylnaproxen, has been shown to interfere with the Jendrassik-López method for measuring total bilirubin. Samples from patients who have taken Naproxen have shown spurious elevation in total bilirubin levels. 70 Please note updated reference range, effective 03/30/10 71 Because ethnic data is not always readily available, this report includes an eGFR for both -Americans and non- Americans. The National Kidney Disease Education Program (NKDEP) does not endorse the use of the MDRD equation for patients that are not between the ages of 18 and 70, are , have extremes of body size, muscle mass, or nutritional status, or are non- or non-. According to the National Kidney Foundation, irrespective of diagnosis, the stage of the disease is based on the level of kidney function: Stage Description GFR(mL/min/1.73 m(2)) 1 Kidney damage with normal or decreased GFR 90 2 Kidney damage with mild decrease in GFR 60-89 3 Moderate decrease in GFR 30-59 4 Severe decrease in GFR 15-29 5 Kidney failure <15 (or dialysis) 72 * SERUM LEVELS OF PSA MEASURED USING THE [employer] ACCESS HYBRITECH IMMUNOASSAY SHOULD NOT BE INTERPRETED ABSOLUTE EVIDENCE OF THE PRESENCE OR ABSENCE OF DISEASE. THE PSA VALUE SHOULD BE USED IN CONJUNCTION WITH OTHER PERTINENT CLINICAL DIAGNOSTIC PROCEDURES. A PSA value in the range of 0.1 to 0.6 ng/ml is indeterminate if being used as an indicator of recurrent or residual disease. . The values obtained with different assay methods of kits cannot be used interchangeably. 73 CHOLESTEROL INTERPRETATION: Desirable: Less than 200 MG/DL Borderline-High Risk: 200-239 MG/DL High-Risk: 240 MG/DL and over 74 HDL INTERPRETATION: Undesirable: High Risk: Less than 40 MG/DL Desirable: Low Risk: Greater than 60 MG/DL 75 LDL INTERPRETATION: Low Risk Optimal Level: LDL Less than 100 MG/DL Near or Above Optimal: LDL 100-129 MG/DL Borderline High Risk: LDL 130-159 MG/DL High Risk: LDL 160-189 MG/DL Very High Risk: LDL Greater than 189 MG/DL 76 Anion gap measurement may be of limited value in the presence of any alkalosis, especially in a combined acid base disorder. . 77 A metabolite of Naproxen, O-desmethylnaproxen, has been shown to interfere with the Jendrassik-[place] method for measuring total bilirubin. Samples from patients who have taken Naproxen have shown spurious elevation in total bilirubin levels. 78 Because ethnic data is not always readily available, this report includes an eGFR for both -Americans and non- Americans. The National Kidney Disease Education Program (NKDEP) does not endorse the use of the MDRD equation for patients that are not between the ages of 18 and 70, are , have extremes of body size, muscle mass, or nutritional status, or are non- or non-. According to the National Kidney Foundation, irrespective of diagnosis, the stage of the disease is based on the level of kidney function: Stage Description GFR(mL/min/1.73 m(2)) 1 Kidney damage with normal or decreased GFR 90 2 Kidney damage with mild decrease in GFR 60-89 3 Moderate decrease in GFR 30-59 4 Severe decrease in GFR 15-29 5 Kidney failure <15 (or dialysis) 79 Lymphopenia % 80 Anion gap measurement may be of limited value in the presence of any alkalosis, especially in a combined acid base disorder. . 81 A metabolite of Naproxen, O-desmethylnaproxen, has been shown to interfere with the Jendrassik-[place] method for measuring total bilirubin. Samples from patients who have taken Naproxen have shown spurious elevation in total bilirubin levels. 82 Because ethnic data is not always readily available, this report includes an eGFR for both -Americans and non- Americans. The National Kidney Disease Education Program (NKDEP) does not endorse the use of the MDRD equation for patients that are not between the ages of 18 and 70, are , have extremes of body size, muscle mass, or nutritional status, or are non- or non-. According to the National Kidney Foundation, irrespective of diagnosis, the stage of the disease is based on the level of kidney function: Stage Description GFR(mL/min/1.73 m(2)) 1 Kidney damage with normal or decreased GFR 90 2 Kidney damage with mild decrease in GFR 60-89 3 Moderate decrease in GFR 30-59 4 Severe decrease in GFR 15-29 5 Kidney failure <15 (or dialysis) 83 INTERPRETATION %CK-MB < 5% NOT SUPPORTIVE OF DIAGNOSIS OF [place] 5 - <10% INDETERMINATE; SUGGEST SERIAL STUDIES IF CLINICALLY INDICATED 10% OR > CONSISTENT WITH DIAGNOSIS OF [place] . 84 THERAPEUTIC TARGET FOR THE TREATMENT OF DIABETES MELLITUS PATIENTS IS <7% HBA1C, AND IN SELECTIVE PATIENTS <6.0%. PLEASE REFER TO [place] [employer] DIABETIC CARE GUIDELINES FOR FURTHER INFORMATION. 85 -- REFERENCE VALUE -- 25-HYDROXY D TOTAL (D2+D3) Optimum levels in the normal population are 25-80 Test Performed by: [facility] Dpt of Lab Med and Pathology [address] [place] [address] Quality Manager: Max Luis III, M.D. 86 Note: Apparently normal individuals of blood group "O" may have somewhat lower Factor VIII and von Willebrand factor (VWF) than individuals of other blood groups, such that (for example) those of group "O" may have VWF antigen as low as 40-50%, whereas normals of nongroup "O" generally have VWF antigen above 60-70%. Suggest clinical correlation. Test Performed by: [facility] Dpt of Lab Med and Pathology [address] [place] [id number] Quality Manager: Max Luis III, M.D. 87 CHOLESTEROL INTERPRETATION: Desirable: Less than 200 MG/DL Borderline-High Risk: 200-239 MG/DL High-Risk: 240 MG/DL and over 88 HDL INTERPRETATION: Undesirable: High Risk: Less than 40 MG/DL Desirable: Low Risk: Greater than 60 MG/DL 89 LDL INTERPRETATION: Low Risk Optimal Level: LDL Less than 100 MG/DL Near or Above Optimal: LDL 100-129 MG/DL Borderline High Risk: LDL 130-159 MG/DL High Risk: LDL 160-189 MG/DL Very High Risk: LDL Greater than 189 MG/DL 90 Anion gap measurement may be of limited value in the presence of any alkalosis, especially in a combined acid base disorder. . 91 Because ethnic data is not always readily available, this report includes an eGFR for both -Americans and non- Americans. The National Kidney Disease Education Program (NKDEP) does not endorse the use of the MDRD equation for patients that are not between the ages of 18 and 70, are , have extremes of body size, muscle mass, or nutritional status, or are non- or non-. According to the National Kidney Foundation, irrespective of diagnosis, the stage of the disease is based on the level of kidney function: Stage Description GFR(mL/min/1.73 m(2)) 1 Kidney damage with normal or decreased GFR 90 2 Kidney damage with mild decrease in GFR 60-89 3 Moderate decrease in GFR 30-59 4 Severe decrease in GFR 15-29 5 Kidney failure <15 (or dialysis) 92 Test Performed by: [facility] Dpt of Lab Med and Pathology [address] [place] [address] Quality Manager: Max Luis III, M.D. 93 Less Than 1.0......Low Risk of Cardiovascular Disease 1.0-3.0............Medium Risk (<2 Fold Increase) Greater Than 3.0...High Risk (Approximately 2-Fold Increase) The above guidelines are referenced in "Markers of Inflammation and Cardiovascular Disease: Application to Clinical and Public Health Practice." A Statement for Health Professionals from the Centers for Disease Control and Prevention and the [place] [employer]. (Reference: Circulation 2003 107:499-511) SERUM LEVELS OF HIGH SENSITIVITY C-REACTIVE PROTEIN MEASURED BY THE [employer] LXi 725 SYSTEM SHOULD NOT BE INTERPRETTED ABSOLUTE EVIDENCE OF THE PRESENCE OR ABSENCE OF DISEASE. A HIGH SENSITIVITY CRP VALUE SHOULD BE USED IN CONJUNCTION WITH OTHER PERTINENT CLINICAL AND DIAGNOSTIC INFORMATION. 94 CHOLESTEROL INTERPRETATION: Desirable: Less than 200 MG/DL Borderline-High Risk: 200-239 MG/DL High-Risk: 240 MG/DL and over 95 HDL INTERPRETATION: Undesirable: High Risk: Less than 40 MG/DL Desirable: Low Risk: Greater than 60 MG/DL 96 LDL INTERPRETATION: Low Risk Optimal Level: LDL Less than 100 MG/DL Near or Above Optimal: LDL 100-129 MG/DL Borderline High Risk: LDL 130-159 MG/DL High Risk: LDL 160-189 MG/DL Very High Risk: LDL Greater than 189 MG/DL 97 Test Performed by: [facility] Dpt of Lab Med and Pathology [address] [place] [address] Quality Manager: Max Luis III, M.D. 98 Anion gap measurement may be of limited value in the presence of any alkalosis, especially in a combined acid base disorder. . 99 Note change in reference range as of 04/29/08. The change was based on recommendations from the [place] [employer]. 100 Please note change in reference range effective 08 . 101 Because ethnic data is not always readily available, this report includes an eGFR for both -Americans and non- Americans. The National Kidney Disease Education Program (NKDEP) does not endorse the use of the MDRD equation for patients that are not between the ages of 18 and 70, are , have extremes of body size, muscle mass, or nutritional status, or are non- or non-. According to the National Kidney Foundation, irrespective of diagnosis, the stage of the disease is based on the level of kidney function: Stage Description GFR(mL/min/1.73 m(2)) 1 Kidney damage with normal or decreased GFR 90 2 Kidney damage with mild decrease in GFR 60-89 3 Moderate decrease in GFR 30-59 4 Severe decrease in GFR 15-29 5 Kidney failure <15 (or dialysis) 102 TEST RESULT RETURNED FROM REFERENCE LABORATORY AND HARDCOPY SENT TO PHYSICIAN(S) OFFICE. 103 INTERPRET RESULTS WITH CAUTION SPECIMEN RECEIVED IMPROPERLY SPUN > 20 HOURS POST-COLLECTION. 104 Anion gap measurement may be of limited value in the presence of any alkalosis, especially in a combined acid base disorder. . 105 FASTING 106 Classification: Desirable . 107 CALCULATED LDL APPROXIMATES THE VALUE OF A DIRECT LDL MEASUREMENT. Classification: Borderline High . 108 Anion gap measurement may be of limited value in the presence of any alkalosis, especially in a combined acid base disorder. . Procedures Date Code Description Status 12/31/2018 12529 EKG Tracing & Interpretation Completed 02/24/2016 [id number] Colonoscopy Completed 09/25/2013 Inject/Drain Joint/Bursa Major W/O US Completed 09/25/2013 Inject/Drain Joint/Bursa Major W/O US Completed 12/31/2011 [id number] ECHO Stress Test Incl Perf Contiuous ekg Monitoring Completed W/Phys Superv 12/26/2011 [id number] ECHO Transthoracic, Real-Time 2D With Doppler And Completed Color Flow 12/25/2011 [id number] EKG Tracing & Interpretation Completed 11/01/2008 [id number] Diabetic Foot Exam Completed 2008 [id number] Diabetic Foot Exam Completed Encounters Type Date Location Provider Dx Diagnosis Office Visit 12/12/2018 [facility] Internal Karen Zamarripa MD E03.9 Hypothyroidism, 2:20p Medicine unspecified I10 Essential (primary) hypertension E78.2 Mixed hyperlipidemia K21.9 Gastro-esophageal reflux disease without esophagitis Office Visit 08/20/2018 4:20p [facility] Internal Adria Wyman Z00.01 Encounter for Abi Soria M.D.,FACP general adult [address] medical exam w abnormal findings E03.9 Hypothyroidism, unspecified J32.9 Chronic sinusitis, unspecified I10 Essential (primary) hypertension Z23 Encounter for immunization Office Visit 08/13/2018 9:20a [facility] Internal Adria Wyman H66.91 Otitis media, Abi Soria M.D.,FACP unspecified, right [address] ear J01.90 Acute sinusitis, unspecified E03.9 Hypothyroidism, unspecified Office Visit 08/06/2017 [facility] Internal Guru L04.0 Acute lymphadenitis 11:00a Abi Sanchez M.D. 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 unspecified E78.2 Mixed hyperlipidemia Office Visit 06/29/2016 3:40p [facility] Internal Guru Sanchez, J20.9 Acute bronchitis, Medicine - MMeiDMei unspecified [address] Office Visit 03/02/2016 3:00p [facility] Internal Sam Pascual MAT PUNCHER E78.5 Hyperlipidemia, Medicine - unspecified [address] M79.1 Myalgia R10.12 Left upper quadrant pain Office Visit 11/24/2015 10:30a [facility] Internal Adria Wyman Z00.01 Encounter for Abi Soria M.D.,[facility] general adult [address] medical exam w abnormal findings E03.9 Hypothyroidism, unspecified R10.32 Left lower quadrant pain E78.5 Hyperlipidemia, unspecified H93.293 Other abnormal auditory perceptions, bilateral I10 Essential (primary) hypertension Office Visit 02/08/2015 11:00a [facility] Internal Iftikhar Koenig, 465.9 URI Upper Medicine - [place] M.D[address] Infections Acute Unspec Sites 780.79 Malaise And Fatigue Other 244.9 Hypothyroidism Other Unspec 401.9 Hypertension Unspec 272.0 Hypercholesterolemia Pure 401.1 Hypertension Benign Office Visit 01/07/2015 3:00p [facility] Internal Iftikhar Koenig, 461.8 Sinusitis Acute Medicine - [place] M.DMei Other [address] 386.30 Labyrinthitis Unspec 461.9 Sinusitis Acute Unspec Office Visit 07/26/2014 10:30a [facility] Internal Keegan Garrett, MAT PUNCHER 461.0 Sinusitis Acute Medicine Maxillary 381.4 Otitis Media Acute Or Chronic Nonsuppurative Office Visit 10/08/2013 2:00p [facility] Internal Zainab Gutierrez, V70.0 Examination Medicine N.P. 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 715.36 Osteoarthrosis Localzd Not Spec Prime Or 2Ndy Lower Leg Office Visit 09/17/2013 9:10a [facility] Internal Adria Wyman 473.8 Sinusitis Medicine Jorge Soria,FACP Chronic Other 401.9 Hypertension Unspec V04.81 Need For Prophylactic Vaccination & Inoculation/Influenza Office Visit 02/22/2012 1:20p [facility] Internal Adria Wyman 785.0 Tachycardia Unspec Medicine Jorge Soria,FACP 244.9 Hypothyroidism Other Unspec Office Visit 02/01/2012 3:00p [facility] Internal Adria Wyman V70.0 Examination Medicine Jroge Soria,FACP General Medical Routine AT Health Care Facility 427.0 PSVT Paroxysmal Supraventricular Tachycardia 272.0 Hypercholesterolemia Pure 244.9 Hypothyroidism Other Unspec Office Visit 01/18/2012 10:20a Merced Qutaybeh S. 785.0 Tachycardia Cardiology Jorge Jensen Unspec 401.9 Hypertension Unspec 785.1 Palpitations 272.0 Hypercholesterolemia Pure Office Visit 12/31/2011 3:30p Merced Qutaybeh S. 785.0 Tachycardia Cardiology Jorge Jensen Unspec 401.9 Hypertension Unspec 785.1 Palpitations 272.0 Hypercholesterolemia Pure Office Visit 12/25/2011 2:45p Merced Qutaybeh S. 785.0 Tachycardia Cardiology Jorge Jensen Unspec 401.9 Hypertension Unspec 272.0 Hypercholesterolemia Pure 785.1 Palpitations Office Visit 11/27/2011 1:45p [facility] Internal Zainab Matt, 401.9 Hypertension Medicine N.P. Unspec 272.0 Hypercholesterolemia Pure 244.9 Hypothyroidism Other Unspec 382.9 Otitis Media Unspec 785.1 Palpitations 305.00 Alcohol Abuse Unspec Office Visit 11/13/2011 11:00a [facility] Internal Zainab Matt, 382.9 Otitis Media Medicine N.P. Unspec 401.9 Hypertension Unspec 272.0 Hypercholesterolemia Pure 785.1 Palpitations Office Visit 11/01/2011 9:50a [facility] Internal Adria Wyman 593.9 Kidney & Ureter Medicine Jorge Soria,FACP Disorders Unspec V65.49 Counseling Other Spec 473.9 Sinusitis Chronic Unspec V04.81 Need For Prophylactic Vaccination & Inoculation/Influenza V05.3 Viral Hepatitis Vaccination & Inoculation Office Visit 01/30/2011 10:00a DO Not Use [employer]ather [employer]yer Adria Wyman V70.0 Examination AT Montrell Soria M.D.,[facility] General Medical Routine AT Health Care Facility 401.9 Hypertension Unspec 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 Office Visit 11/15/2010 3:20p DO Not Use Feather Sawyer Guru Duenasra, 592.0 Calculus Of AT [facility] Jorge Kidney Office Visit 11/08/2010 10:00a DO Not Use Feather Sawyer Guru Pachikara, 592.1 Calculus Of AT [facility] Jorge Ureter 783.21 Loss Of Weight 780.4 Dizziness & Giddiness Office Visit 09/20/2010 4:00p DO Not Use Feather Sawyer AT Adria Soria, 723.1 Cervicalgia Montrell Patel,FACP Office Visit 09/07/2010 3:00p DO Not Use Feather Sawyer AT Adria Soria, 723.1 Cervicalgia Lillysuzanna Patel,[facility] 723.1 Cervicalgia 723.1 Cervicalgia 723.1 Cervicalgia 723.1 Cervicalgia 723.1 Cervicalgia Office Visit 07/31/2010 10:20a DO Not Use Feather [employer]yer Adria Wyman 401.9 Hypertension AT Montrell Soria M.D.,[facility] Unspec 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 272.0 Hypercholesterolemia Pure 286.4 Von Willebrands Disease V04.81 Need For Prophylactic Vaccination & Inoculation/Influenza Office 11/01/2009 DO Not Use Ada Sharma PA 309.0 Adjustment Disorder With Visit 1:00p Feather Sawyer AT Depression [facility] Office 10/04/2009 DO Not Use Ada Sharma PA 272.0 Hypercholesterolemia Visit 3:00p Feather Sawyer AT Pure [facility] 088.81 Lyme Disease 401.9 Hypertension Unspec 780.79 Malaise And Fatigue Other 472.0 Rhinitis Chronic Office Visit 07/01/2009 10:00a DO Not Use Feather [employer]yer Ada Sharma PA 401.9 Hypertension AT [facility] Unspec 530.81 Esophageal Reflux 461.9 Sinusitis Acute Unspec Office Visit 12/22/2008 2:30p DO Not Use Feather [employer]yer Ada Sharma PA 401.9 Hypertension AT [facility] Unspec 530.81 Esophageal Reflux 461.9 Sinusitis Acute Unspec Office Visit 07/12/2008 11:00a DO Not Use Feather Sawyer Thananart, 461.9 Sinusitis Acute AT [facility] Jorge Myers Unspec 530.81 Esophageal Reflux Office Visit 01/07/2008 4:00p DO Not Use [employer]yer Ada Sharma PA 401.9 Hypertension AT [facility] Unspec 305.1 Tobacco Use Disorder Office Visit 12/08/2007 4:00p DO Not Use Feather Sawyer Ada Sharma PA 401.9 Hypertension AT [facility] Unspec 305.1 Tobacco Use Disorder Office Visit 11/07/2007 2:00p DO Not Use Feather Sawyer Ada Sharma PA 782.1 Rash & Other AT [facility] Nonspec Skin Eruption 401.9 Hypertension Unspec Office Visit 10/17/2007 11:00a DO Not Use Feather Sawyer Ada Sharma PA 401.9 Hypertension AT [facility] Unspec 272.0 Hypercholesterolemia Pure Plan of Treatment Future Appointment(s):01/28/2019 11:20 am - Karen Zamarripa MD at [facility] Internal Idlzkuhh14/11/2019 2:00 pm - Karen Zamarripa MD at [facility] Internal [id number] - Karen Zamarripa, MDR07.89 Other chest painE03.9 Hypothyroidism, unspecifiedNew Medication:Levothyroxine Sodium 137 mcg - Take one tablet dailyFollow up:F/U 4 weeks after getting labwork done
--- OUTSIDE RECORDS SUMMARY | 2019-01-11 11:13 | XMS REPORT | Continuity of Care Document ---
:1970 External Reference #:[id number] Author Name Emilee Donovan Care Team Providers Name Role Phone Adria Soria MD Primary Care Physician Unavailable Payers Date Identification Numbers Payment Provider Subscriber Effective: 2015 Policy Number: [id number] [employer] Anitha Byrd PayID: [id number] [address] [address] [place] [address] Effective: 2010 Policy Number: [id number] [place] Jamie Richards Onset: 2010 PayID: [id number] [address] [place] [address] Onset: 2013 Policy Number: [facility] Jamie Richards [id number] PayID: [id number] [address] [address] [place] [address] Advance Directives Description No Information Available Problems Active Problems Provider Date Essential hypertension Adria Soria M.D.,FACP Onset: 07/31/2010 Atypical depressive disorder Adria Soria M.D.,FACP Onset: 01/30/2011 Chronic sinusitis Adria Soria M.D.,FACVignesh Onset: 11/01/2011 Hypothyroidism Zainab Gutierrez, N.P. Onset: 11/27/2011 Pure hypercholesterolemia Zainab Gutierrez, N.P. Onset: 11/27/2011 Inactive Problems Tachycardia Clark Jensen M.D. Onset: 12/25/2011 Inactive: 11/24/2015 Palpitations Quladonna Jensen M.D. 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 Barajas (GI) Mixed hyperlipidemia Guru Sanchez M.D. Onset: 08/01/2016 Inactive: 08/13/2018 Family History Date Family Member(s) Observation Comments General Heart Disease General Cancer General Diabetes Father HX Of CAD Father [place] x 2 Mother due to Mother Of () - Document: [place] At Age 56 10/17/07 - Prog Note [...] Status Significant Other Lives With Occupation 01/17/2017 [place] Tobacco Use Start: Unknown End: Former Cigarette Smoker Quit April 2008 Unknown Smoking Status Reviewed: 12/12/18 Former Cigarette Smoker Quit April 2008 ETOH [...] Qnty Indications Ordering Date Provider Levothyroxine Sodium 1 by mouth every 90tabs E03.9 Nahed Kevin MD 2017 day 150mcg Tablets Fluticasone Propionate 1 act each 16gm J01.90 Adria Wyman 03/06/2017 nostril twice Jorge Soria,FACP 50mcg/Act Suspension daily prn Clobetasol Propionate topical qd prn 30gm Adria Wyman 01/17/2017 E for RT Jorge Soria,FACP 0.05% Cream elbow/knee Rosuvastatin Calcium take 1 tablet by 90tabs Adria Wyman 01/17/2017 5mg mouth every Jorge Soria,FACP Tablets evening at bedtime Vitamin D 1 by mouth every Adria Wyman 11/24/2015 (Cholecalciferol) day Jorge Soria,FACP 1000Unit Capsules Lisinopril-Hydrochloro Take 1 Tablet By 90tabs I10 Adria Wyman 11/24/2015 thiazide Mouth Every Jorge Soria,FACP 10-12.5mg Morning Tablets Omeprazole take 1 capsule 90caps Nahed Kevin MD 07/12/2008 40mg Capsules by mouth every day Multiple Vitamin 1 po qd 100tabs Unknown Tablets History Medications Amoxicillin/Clavulanate by mouth twice a 20tabs Adria Wyman 08/13/2018 - Potassium day [place], 08/23/2018 875-125mg Tablets M.DMei,FACP Levothyroxine Sodium 1 by mouth every 90tabs E03.9 Adria Wyman 2017 - 137mcg Tablets day [place], 08/13/2018 Jorge,FACP Amoxicillin/Clavulanate 1 by mouth twice 20tabs L04.0 Guru 08/06/2017 - Potassium a day [facility], 08/16/2017 875-125mg Tablets M.D. Doxycycline Hyclate 1 by mouth twice 20tabs J01.9 Adria Wyman 03/15/2017 - 100mg Tablets a day 0 [place], 03/25/2017 Jorge,FACP Medrol medrol dosepack 1pak Adria Wyman 03/15/2017 - 4mg Tablets as directed [place], 08/13/2018 Jorge,FACP Amoxicillin take 1 tabs 3x 30tabs J01.9 Zsofia 03/06/2017 - 500mg Tablets daily by mouth 0 MARIAH Milian 03/15/2017 daily Azithromycin 2 tab today and 6tabs J01.9 Guru 08/01/2016 - 250mg Tablets then 1tab daily 0 [place], 11/20/2016 MOc Amoxicillin/Clavulanate 1 by mouth twice 20tabs J20.9 Guru 06/29/2016 - Potassium a day [place], 08/01/2016 875-125mg Tablets Mini.Zamzam Vitamin D (Ergocalciferol) 1 cap by mouth 8caps Iftikhar 02/09/2015 - [id number] per week x 8 Jorge Koenig 11/24/2015 Capsules weeks Azithromycin two tabs day one, 6tabs Iftikhar 02/08/2015 - 250mg Tablets one daily till Jorge Koenig 07/29/2015 gone Amoxicillin/Clavulanate 1 by mouth twice 28tabs 461.8 Iftikhar 01/07/2015 - Potassium a day Jorge Koenig 02/08/2015 875-125mg Tablets Meclizine HCL 1 tablet twice a 30tabs 386.3 Iftikhar 01/07/2015 - 12.5mg Tablets day, as needed 0 Jorge Koenig 02/08/2015 Amoxicillin 1 tab every 12 14caps 461.0 Keegan Garrett, 07/26/2014 - 500mg Capsules 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 Lisinopril take 1 tablet by 30tabs I10 Adria Wyman 03/13/2012 - 10mg Tablets mouth every day [place], 11/24/2015 Jorge,FACP Lisinopril 1 po qd 401.9 Adria Wyman 03/11/2012 - 10mg Tablets [place], 03/13/2012 M.D.,FACP Levothyroxine Sodium take 1-1/2 tablet 45tabs 244.9 Adria Wyman 2011 - 25mcg Tablets by mouth every [place], 10/08/2013 morning M.D.,FACP Ativan 1/2-1 po bid prn 10tabs 785.0 Adria Wyman 02/22/2012 - 1mg Tablets [place], 09/25/2013 M.Candy.,FACP Metoprolol Tartrate 1 po bid as 180tabs Adria Wyman 02/01/2012 - 25mg Tablets needed for [place], 09/25/2013 palpitations M.D.,FACP Levothyroxine Sodium take one tablet 30tabs 244.9 Adria Wyman 01/02/2012 - 25mcg Tablets by mouth in the [place], 02/22/2012 morning M.D.,FACP Avelox take one pill by 14tabs Hattie 12/26/2011 - 400mg Tablets mouth daily for 7 [place] 12/26/2011 days n, N.P. Clarithromycin 1 po bid for 14 28tabs Adria Wyman 12/18/2011 - 500mg Tablets days [place], 12/26/2011 M.Zamzam,FACP Vivotif Diane 1 cap PO qod x4 4caps Adria Wyman 11/29/2011 - DR Cap Capsules DR doses; give 1h [place], 12/18/2011 before meal w/ M.D.,FACP cold or lukewarm drink; avoid alcohol w/in 1h of each dose; Levothyroxine Sodium 1/2 tablet po qd 30tabs 244.9 Adria Wyman 2011 - 25mcg Tablets [place], 01/02/2012 MOc,FACP Amoxicillin 1 tab po q8hr x 30tabs 382.9 Adria Wyman 11/27/2011 - 500mg Tablets 10 days [place], 12/18/2011 M.Zamzam,FACP Simvastatin take 1 tablet by 30tabs 272.0 Adria Wyman 11/27/2011 - 10mg Tablets mouth at bedtime [place], 08/13/2012 MOc,FACP Chloroquine Phosphate 1 q week starting 7tabs V65.4 Adria Wyman 2011 - 500mg Tablets 1 wk before 9 [place], 02/01/2012 travel, until 4 M.DMei,FACP wks after Zithromax 2 qd day 1 then 1 6tabs V65.4 Ardia Wyman 11/01/2011 - 250mg Tablets po qday 9 [place], 11/27/2011 Jorge,FACP Vitamin D Adria Wyman 01/30/2011 - [place], 12/25/2011 Jorge,FACP Ibuprofen tid prn 90tabs 723.1 Adria Wyman 09/07/2010 - 600mg Tablets [place], 11/08/2010 Jorge,YASMINEP Hydrocodone/Acetaminophen 1 tablet po qid 50tabs 723.1 Adria Wyman 2009 - 5-325mg prn [place], 11/08/2010 Tablets Jorge,YASMINEP Budeprion SR 2 tabs po bid 120tabs 296.8 Adria Wyman 07/31/2010 - 100mg Tablets ER 12HR 2 [place], 11/01/2011 Jorge,FACP Nortriptyline HCL 1 bid po 60caps 309.0 Adria Wyman 11/01/2009 - 25mg Capsules [place], 07/31/2010 Jorge,YASMINEP Nasonex 2 spays each 1units 472.0 Adria Wyman 10/04/2009 - 50mcg/Act Suspension nostril daily [place], 09/17/2013 Jorge,YASMINEP Lisinopril Take 1/2 Tablet 30tabs 401.9 Adria Wyman 10/04/2009 - 10mg Tablets By Mouth Once [place], 03/11/2012 Daily Jorge,YASMINEP Amlodipine Besylate 1 po qd 30tabs 401.9 Adria Wyman 07/01/2009 - 10mg Tablets [place], 10/04/2009 Jorge,YASMINEP Ciprofloxacin HCL si bid x 10 20tabs 530.8 Adria Wyman 12/22/2008 - 500mg Tablets days 1 [place], 07/01/2009 Jorge,FACP Augmentin si bid x 14 28tabs 473.8 Adria Wyman 12/22/2008 - 875mg Tablets days [place], 10/04/2009 Jorge,FACP Amlodipine 1 po qd 10units 401.9 Adria Wyman 12/22/2008 - 5mgM [place], 07/01/2009 Jorge,FACP Amoxicillin 1 tab po bid x 10 20tabs [place], 07/12/2008 - 875mg Tablets Zamzam Myers M.D. 12/22/2008 Wellbutrin SR 1 PO qd x 3 days 60tabs Adria Wyman 03/02/2008 - 150mg Tablets ER 12HR then 1 bid [place], 12/22/2008 Jorge,FACP Potassium Chloride ER 1 po qd 30caps 401.9 Adria Wyman 01/07/2008 - 10Meq Capsules [place], 07/01/2009 ER Jorge,FACP Chantix 1 po bid 60tabs 305.1 Adria Wyman 01/07/2008 - 1mg Tablets [place], 03/02/2008 Jorge,FACP Hydrochlorothiazide 1 qd 90tabs 401.9 Adria Wyman 12/08/2007 - 12.5mg Tablets [place], 12/22/2008 Jorge,FACP Chantix as directed 1Pack 305.1 Adria Wyman 12/08/2007 - Starting Month Pack Tablets [place], 01/07/2008 Jorge,FACP Triamcinolone Acetonide apply bid to 45Grams 782.1 Adria Wyman 2007 - 0.1% Cream affected area prn [place], 11/01/2011 Jorge,FACP Cefuroxime Axetil 1 tablet by mouth 20tabs Unknown - 250mg Tablets twice daily for 12/18/2011 10 days Biaxin 1 bid po 20tabs Unknown - 500mg Tablets 12/25/2011 Fish Oil 1 po qd Unknown - Capsules 01/07/2015 Vitamin D 1 po qod Unknown - 2000Unit 09/25/2013 Hyoscyamine Sulfate ER 1 tablet daily Unknown - 0.375mg prn 08/13/2018 Tablets ER 12HR Medications Administered in Office Medication SIG Qnty Indications Ordering Provider Date Depomedrol 80MG Bell Aguila M.D. 09/25/2013 Injection Immunizations CPT Code Status Date Vaccine Reaction Lot # [id number] Given 08/20/2018 Influenza Virus Vaccine, No reaction noted .. [id number] Quadrivalent, Split, hh Preservative Free [id number] Given 01/17/2017 Tdap - [id number] Tetanus/Diptheria/Acellula r Pertussis [id number] Given 09/17/2013 Fluvirin Im 3Yrs And Older [id number] 57191 Given 11/01/2011 Influenza Virus 3Yrs & [id number] Over 05959 Given 11/01/2011 Hepatitis A Vaccine Adult [id number] Dosage 38012 Given 07/31/2010 Influenza Virus 3Yrs & [id number] Over Vital Signs Date Vital Result Comment 12/12/2018 2:16pm Height 71 inches 5'11" Weight [...] Result H/L Range Note Laboratory test 12/09/2018 [facility] TSH 2.38 mcIU/mL N 0.34- 5.[address] ([place] [address] Stim Horm) [phone] Free T4 (Free Thyroxine) 1.16 ng/dL High 0.61-1.12 Factor 8 Profile 12/09/2018 [facility] Special Coag Performed [address] [place] [address] [phone] Coagulation Factor VIII Activi 73 % 55 - 200 2 von Willebrand Factor Antigen 69 % 55 - 200 3 VonWillibrand Factor Activity 61 % 55 - 200 4 von Willebrand Panel Inter See Comment 5 von Willebrand Panel Reviewed See Comment 6 Thyroid 08/05/2018 [facility] Thyroid Stim 7.9 mIU/L Abnormal 0.3-4.[address] [place] [address] [phone] Free T4 1.5 ng/dL 0.9 - 1.7 8 Thyroperoxidase Antibody 0.6 IU/mL <9.0 9 Laboratory test 06/10/2018 [facility] TSH (Thyroid 11.24 High 0.34-5.[address] Stim Horm) mcIU/[place] [address] [phone] Basic Metabolic 06/10/2018 [facility] Sodium 139 mmol/L N 135- [address] [place] [address] [phone] Potassium 4.4 mmol/L N 3.5-5.0 Chloride 103 mmol/L N 101-111 Co2 Carbon Dioxide 30 mmol/L N 22-32 Anion Gap 6 mmol/L N 2-11 Glucose 95 mg/dL N 70-100 Blood Urea Nitrogen 20 mg/dL N 6-24 Creatinine 1.19 mg/dL High 0.67-1.17 BUN/Creatinine Ratio 16.8 N 8-20 Calcium 9.4 mg/dL N 8.6-10.3 Egfr Non- 65.5 >60 Egfr 79.3 >60 11 Lipid Profile 06/10/2018 [facility] Triglycerides 211 mg/dL 12 (Trig/Chol/HDL) [address] [place] [address] [phone] Cholesterol 171 mg/dL 13 HDL Cholesterol 33.4 mg/dL 14 LDL Cholesterol 95 mg/dL 15 Laboratory test 01/15/2017 [facility] TSH (Thyroid 4.07 mcIU/mL N 0.34-5.60 [address] Stim [place]orm) [place] [address] [phone] Basic Metabolic 01/15/2017 [facility] Sodium 134 mmol/L N 133- 145 Panel [address] [place] [address] [phone] Potassium 4.5 mmol/L N 3.5-5.0 Chloride 100 mmol/L Low 101-111 Co2 Carbon Dioxide 28 mmol/L N 22-32 Anion Gap 6 mmol/L N 2-11 Glucose 92 mg/dL N 70-100 Blood Urea Nitrogen 25 mg/dL High 6-24 Creatinine 1.08 mg/dL N 0.67-1.17 BUN/Creatinine Ratio 23.1 High 8-20 Calcium 9.5 mg/dL N 8.6-10.3 Egfr Non- 73.6 N >60 Egfr 94.7 N >60 17 Lipid Profile 01/15/2017 [facility] Triglycerides 207 mg/dL N 18 (Trig/Chol/HDL) [address] [place] [address] [phone] Cholesterol 217 mg/dL N 19 HDL Cholesterol 35.1 mg/dL N 20 LDL Cholesterol 141 mg/dL N 21 Lipid Profile 07/26/2016 [facility] Triglycerides 163 mg/dL N 22 (Trig/Chol/HDL) [address] [place] [address] [phone] Cholesterol 228 mg/dL N 23 HDL Cholesterol 34.3 mg/dL N 24 LDL Cholesterol 161 mg/dL N 25 Laboratory test 02/24/2016 [facility] Clotest SEE RESULT [address] [place] [address] [phone] Laboratory test 02/24/2016 [facility] Surgical SEE RESULT 27, [address] [place] [address] Order [phone] Laboratory test 11/22/2015 [facility] TSH (Thyroid 4.38 ?IU/mL N 0.34- [address] Stim Horm) 5.60 [place], [place] [id number] [phone] Vitamin D Total 25(Oh) 42.3 ng/mL N 30-50 Comp Metabolic Panel 11/22/2015 [facility] Sodium 136 mmol/L N 133-[address] [place] [address] [phone] Potassium 4.4 mmol/L N 3.5-5.0 Chloride 101 [...] 65.5 N >60 Egfr 84.2 N >60 30 Lipid Profile 11/22/2015 [facility] Triglycerides 222 mg/dL N 31 (Trig/Chol/HDL) [address] [place] [address] [phone] Cholesterol 167 mg/dL N 32 HDL Cholesterol 33.7 mg/dL N 33 LDL Cholesterol 89 mg/dL N 34 Laboratory test 02/08/2015 [facility] Vitamin B12 413 pg/mL N 180-914 35 finding [address] [place] [address] [phone] Vitamin D Total 25(Oh) 28.3 ng/mL Low 30-50 Erythrocyte Sed Rate 7 mm/Hr N 0-14 Lipid Profile 02/08/2015 [facility] Triglycerides 280 mg/dL N 36 (Trig/Chol/HDL) [address] [place] [address] [phone] Cholesterol 200 mg/dL N 37 HDL Cholesterol 34.6 mg/dL N 38 LDL Cholesterol 109 mg/dL N 39 Urinalysis Profile 02/08/2015 [facility] Urine Color Yellow N [address] [place] [address] [phone] Urine Appearance Clear N Urine Specific [place] 1.014 N 1.010-1.030 Urine pH 6.0 N 5-9 Urine Urobilinogen Negative N Negative Urine Ketones Negative N Negative Urine Protein Negative N Negative Urine Leukocytes Negative N Negative Urine Blood Negative N Negative Urine Nitrite Negative N Negative Urine Bilirubin Negative N Negative Urine Glucose Negative N Negative Comp Metabolic Panel 02/08/2015 [facility] Sodium 137 mmol/L N 133-145 [address] [place] [address] [phone] Potassium 4.2 mmol/L N 3.5-5.0 Chloride 102 [...] 91.6 N >60 40 Laboratory test 02/08/2015 [facility] TSH (Thyroid 3.40 ?IU/mL N 0.34-5.[address] Stim [place]orm) [place] [address] [phone] CBC Auto Diff 02/08/2015 [facility] White Blood 8.4 10^3/uL N 4.8-10.[address] [place] [address] [phone] Red Blood Count 5.16 10^6/uL N 4.0-5.4 [...] % 0 N Basic Metabolic Panel 10/05/2013 [facility] Sodium 136 mmol/L 133-[address] [place] [address] [phone] Potassium 4.3 mmol/L 3.5-5.0 Chloride 102 mmol/L 101-111 Co2 Carbon Dioxide 29.0 mmol/L 22-32 Anion Gap 5.0 mmol/L 2-11 Glucose 81 mg/dL 70-100 Blood Urea Nitrogen 15 mg/dL 6-24 Creatinine 1.10 mg/dL 0.50-1.40 BUN/Creatinine Ratio 13.6 8-20 Calcium 9.9 mg/dL 8.1-9.9 Egfr Non- 73.4 >60 Egfr 94.4 >60 41 Lipid Profile 10/05/2013 [facility] Triglycerides 98 mg/dL 40 -200 (Trig/Chol/HDL) [address] [place], [place] [address] [phone] Cholesterol 185 mg/dL Less than 200 HDL Cholesterol 43 mg/dL 40-60 42 Cholesterol/HDL Ratio 4.3 Average 1-4.44 LDL Cholesterol 122.4 High Less Than 100 43 Laboratory test 10/05/2013 [facility] TSH (Thyroid 1.80 0.34- 5.60 [address] Stimulating miu/[place] [address] Horm) [phone] Laboratory test 04/25/2012 [facility] TSH 3.26 0.34-5.[address] MIU/ML [place], [place] [address] [phone] Thyroperoxidase Antibody 0.9 IU/mL Less Than 9.0 Laboratory 03/11/2012 [facility] Cortisol,Saliva <50 <100 45 test finding [address] ng/dL [place], [place] [id number] [phone] Laboratory 03/10/2012 [facility] Cortisol,Saliva <50 <100 46 test finding [address] ng/dL [place], [place] [address] [phone] Cortisol Free 02/25/2012 [facility] Cortisol, Free, 75 Abnormal 3.5-45 24HR Urine [address] Urine mcg/24h [place], [place] [address] [phone] Urine Collection Duration 24 h () Urine Total Volume 2900 mL () 47 Catecholamine 24HR 02/25/2012 [facility] Urine Collection 24 h () Urine Fract [address] [place] [address] [phone] Urine Total Volume 2900 mL () Norepinephrine 49 mcg/24h 15-80 Epinephrine 3.2 mcg/24h 0.0-20.0 Dopamine 380 mcg/24h 65-400 48 Urine 02/25/2012 [facility] Metanephrine, 99 mcg/24h () 49 Metanephrines 24HR [address] [place] [address] [phone] Normetanephrine, Urine 336 mcg/24h () 50 Total Metanephrines, Urine 435 mcg/24h () 51 Urine Collection Duration 24 h () Urine Total Volume 2900 mL () 52 Comp Metabolic Panel 12/24/2011 [facility] Sodium 138 mmol/L 135-[address] [place] [address] [phone] Potassium 3.8 mmol/L 3.5-5.0 Chloride 106 mmol/L [...] > 60 eGFR 85.8 > 60 55 CBC Auto Diff 12/24/2011 [facility] White Blood 9.0 CUMM 4.8- 10.[address] [place] [address] [phone] Red Cell Count 4.88 CUMM 4.6-6.2 Hemoglobin [...] Abs Basophils 0 0-0.2 Laboratory test 12/24/2011 [facility] BNP Evaluatr 32.0 pg/mL 0-100 finding [address] [place] [address] [phone] Laboratory test 12/24/2011 [facility] Magnesium 2.2 mg/dL 1.7 -2.6 finding [address] [place], [place] [address] [phone] CPK (Creatine Kinase) 79 U/L 0-200 CKMB 12/24/2011 [facility] CKMB In NG/ML 1.4 NG/ML 0.3-4.0 [address] [place] [address] [phone] % CKMB 2 %MB 0-9 56 Laboratory test 12/24/2011 [facility] Troponin-I 0 NG/ML 0- 0.06 57 finding [address] [place] [address] [phone] Thyroxine Free 0.78 ng/dL 0.61-1.24 T3 Total 1.41 NG/ML 0.5-1.7 TSH 6.26 MIU/ML High 0.34-5.60 C Reactive Protein < 0.5 mg/dL Less Than 0.5 Laboratory test 12/23/2011 [facility] Troponin-I 0 NG/ML 0- 0.06 58 finding [address] [place] [address] [phone] D Dimer Quantitative < 200 NG/ML Less Than 230 59 TSH 6.79 MIU/ML High 0.34-5.60 Comp Metabolic Panel 12/23/2011 [facility] Sodium 135 mmol/L 135-145 [address] [place] [address] [phone] Potassium 3.9 mmol/L 3.5-5.0 Chloride 102 mmol/L [...] > 60 62 CBC Auto Diff 12/23/2011 [facility] White Blood 8.4 CUMM 4.8- 10.[address] [place] [address] [phone] Red Cell Count 4.82 CUMM 4.6-6.2 Hemoglobin [...] Basophils 0.1 0-0.2 66 Urine Drug 12/23/2011 [facility] Amphetamines NONE DETECTED None SCR ED & [address] Urine Screen [place] [address] [phone] Barbituates Urine Screen NONE DETECTED None Detect Benzodiazepine Ur Screen NONE DETECTED None Detect Cannabinoid Urine Screen NONE DETECTED None Detect Cocaine Metabolites Urine NONE DETECTED None Detect Opiates Urine Screen NONE DETECTED None Detect PCP Urine Screen NONE DETECTED None Detect 67 Urinalysis 12/23/2011 [facility] Ua Color YELLOW Yellow [address] [place] [address] [phone] Appearance-Urine CLEAR Clear Specific [place]-Ur 1.012 1.010-1.030 Esterase-Urine NEGATIVE Negative Nitrite NEGATIVE Negative [id number] NEGATIVE Negative Protein-Urine NEGATIVE Negative PH-Urine 6.5 5-9 Blood-Urine NEGATIVE Negative Ketones-Urine NEGATIVE Negative Bilirubin-Ur NEGATIVE Negative Glucose-Urine NEGATIVE Negative Laboratory test 12/23/2011 [facility] Troponin-I 0 NG/ML 0- 0.06 [address] [place] [address] [phone] Laboratory test 11/27/2011 [facility] TSH 7.90 High 0.34-5.[address] [place] [address] MIU/[place] [address] [phone] Thyroxine Free 0.69 ng/dL 0.61-1.24 Liver Function 11/27/2011 [facility] Total Protein 7.1 GM/DL 6.2-8.[address] [place] [address] [phone] Albumin 4.4 GM/DL 3.6-5.4 Globulin 2.7 GM/DL 2-4 Albumin/Globulin Ratio 1.6 1-3 Bilirubin Total 1.1 mg/dL 0.4-1.5 69 Bilirubin Direct 0.1 mg/dL 0.1-0.5 Indirect Bilirubin 1.0 mg/dL 0.3-1.0 70 Alkaline Phosphatase 42 U/L 39-117 Alt (SGPT) 17 U/L 17-63 Ast (Sgot) 21 U/L 12-42 Laboratory test 11/27/2011 [facility] CPK (Creatine 68 U/L 0- 200 finding [facility] Kinase) [place] [address] [phone] Laboratory test 11/14/2011 [facility] BUN 19 mg/dL 6-[address] [place] [address] [phone] Creatinine 11/14/2011 [facility] Creatinine 1.1 0.50-1.[address] [place] [address] mg/[place] [address] [phone] One Over Creatinine 0.90 eGFR Non- 73.8 > 60 eGFR 94.9 > 60 71 Laboratory test 11/14/2011 [facility] PSA,Diagnostic 0.59 NG/ML 0-4 [address] [place] [address] [phone] Lipid Profile 11/13/2011 [facility] Triglyceride 140 mg/dL 40 -200 (Trig/Chol/HDL) [address] [place] [address] [phone] Cholesterol 228 mg/dL High Less Than 200 73 High Density Lipoprotein 38 mg/dL Low 40-60 74 Cholesterol/HDL Ratio 6.00 AVERAGE High 1-4.97 Low Density Lipoprotein 162 mg/dL High Less Than 100 75 CBC With Manual 11/13/2011 [facility] White Blood 6.5 CUMM 4.8-10.[address] [place] [address] [phone] Red Cell Count 5.00 CUMM 4.6-6.2 Hemoglobin [...] RBC Morphology NORMAL Comp Metabolic Panel 11/13/2011 [facility] Sodium 138 mmol/L 135-[address] [place] [address] [phone] Potassium 4.5 mmol/L 3.5-5.0 Chloride 104 mmol/L [...] 78.2 > 60 78 Laboratory test 11/13/2011 [facility] Thyroxine Free 0.63 ng/dL 0.61-1.[address] [place] [address] [phone] TSH 8.91 MIU/ML High 0.34-5.60 CBC Auto Diff 11/12/2011 [facility] White Blood 7.4 CUMM 4.8- 10.[address] [place] [address] [phone] Red Cell Count 4.87 CUMM 4.6-6.2 Hemoglobin [...] 0 0-0.2 79 Comp Metabolic Panel 11/12/2011 [facility] Sodium 134 mmol/L Low 135-[address] [place] [address] [phone] Potassium 4.3 mmol/L 3.5-5.0 Chloride 103 mmol/L [...] 94.9 > 60 82 Laboratory test 11/12/2011 [facility] CPK (Creatine 75 U/L 0- [address] Kinase) [place] [address] [phone] CKMB 11/12/2011 [facility] CKMB In NG/ML 1.5 NG/ML 0.3-4.[address] [place] [address] [phone] % CKMB 2 %MB 0-9 83 Laboratory test 11/12/2011 [facility] Hemoglobin A1c 5.3 % Less Than [address] 6.0 [place] [address] [phone] Urinalysis 11/08/2010 [facility] Ua Color YELLOW Yellow W/Microscopic [address] [place] [address] [phone] Appearance-Urine CLEAR Clear Specific [place]-Ur 1.025 1.010-1.030 Esterase-Urine NEGATIVE Negative Nitrite NEGATIVE Negative Arhvpmbqcloo-Ex-XCE NEGATIVE Negative Protein-Urine NEGATIVE Negative PH-Urine 6.0 5-9 Blood-Urine NEGATIVE Negative Ketones-Urine NEGATIVE Negative Bilirubin-Ur NEGATIVE Negative Glucose-Urine NEGATIVE Negative WBC-Urine 0-2 0-5 RBC-Urine NONE SEEN 0-2 Epith Cells-Ur RARE None Amorphous Sed-U 2+ None Laboratory test 09/14/2010 [facility] Von Willebrand 53 % Abnormal 55-[address] [place] [address] [phone] Vitamin D, 25 09/14/2010 [facility] 25-Hydroxy <4.0 () Hydroxy [address] Vitamin D2 ng/[place] [address] [phone] 25-Hydroxy Vitamin D3 27 ng/mL () 25-Hydroxy Vitamin D Total 27 ng/mL () 86 Lipid Profile 09/14/2010 [facility] Triglyceride 138 mg/dL 40 -200 (Trig/Chol/HDL) [address] [place] [address] [phone] Cholesterol 225 mg/dL High Less Than 200 87 High Density Lipoprotein 33 mg/dL Low 40-60 88 Cholesterol/HDL Ratio 6.82 AVERAGE High 1-4.97 Low Density Lipoprotein 164 mg/dL High Less Than 100 89 Basic Metabolic Panel 09/14/2010 [facility] Sodium 135 mmol/L 135-[address] [place] [address] [phone] Potassium 4.3 mmol/L 3.5-5.0 Chloride 103 mmol/L 101-111 Co2 (Carbon Dioxide) 26.0 mmol/L 22-32 Anion Gap 6.0 mmol/L 2-11 90 Glucose 85 mg/dL 70-100 BUN 19 mg/dL 6-24 Creatinine 0.90 mg/dL 0.50-1.40 One Over Creatinine 1.10 BUN/Creatinine Ratio 21.1 High 8-20 Calcium 9.5 mg/dL 8.1-9.9 eGFR Non- 99.8 > 60 eGFR 120.8 > 60 91 Apolipoprotein A1 09/14/2010 [facility] Apolipoprotein A1 129 106-[address] mg/[place] [address] [phone] Apolipoprotein B 126 mg/dL Abnormal 48-124 92 Laboratory test 09/14/2010 [facility] C Reactive 2.3 mg/L < 7.[address] [place] [address] Sensit [phone] Lipid Profile 10/04/2009 [facility] Triglyceride 118 mg/dL 40 -200 (Trig/Chol/HDL) [address] [place] [address] [phone] Cholesterol 204 mg/dL High Less Than 200 94 High Density Lipoprotein 39 mg/dL Low 40-60 95 Cholesterol/HDL Ratio 5.23 AVERAGE High 1-4.97 Low Density Lipoprotein 141 mg/dL High Less Than 100 96 Laboratory test 10/04/2009 [facility] Lyme Disease Negative Negative [address] [place] [address] [phone] Basic Metabolic 10/04/2009 [facility] Sodium 138 mmol/L 135- [address] [place], [place] [id number] [phone] Potassium 4.1 mmol/L 3.5-5.0 Chloride 103 mmol/L 101-111 Co2 (Carbon Dioxide) 27.0 mmol/L 22-32 Anion Gap 8.0 mmol/L 2-11 98 Glucose 89 mg/dL 70-100 99 BUN 15 mg/dL 6-24 Creatinine 1.10 mg/dL 0.50-1.40 One Over Creatinine 0.90 BUN/Creatinine Ratio 13.6 8-20 Calcium 9.6 mg/dL 8.1-9.9 100 eGFR Non- 79.6 > 60 eGFR 96.3 > 60 101 CBC With Manual 10/04/2009 [facility] White Blood 7.8 CUMM 4.8-10.[address] [place] [address] [phone] Red Cell Count 4.93 CUMM 4.6-6.2 Hemoglobin [...] Count 4.3 RBC Morphology NORMAL Tick 01/14/2009 [facility] Tick TEST [address] [place] [address] RETU <SEE [phone] NOTE> Basic Metabolic 01/07/2008 [facility] Sodium 134 Low 135 [address] mmol/L -14 [place] [address] 5 [phone] Potassium 4.4 mmol/L 3.5-5.0 Chloride 99 mmol/L Low 101-111 Co2 (Carbon Dioxide) 26.0 mmol/L 22-32 Anion Gap 9.0 mmol/L 2-11 104 Glucose 52 mg/dL Low 70-105 BUN 22 mg/dL 6-24 Creatinine 1.1 mg/dL 0.5-1.4 One Over Creatinine 0.90 BUN/Creatinine Ratio 20.0 8-20 Calcium 8.6 mg/dL Low 8.7-10.2 Basic Metabolic 10/14/2007 [facility] One Over Creatinine 0.90 [address] [place] [address] [phone] Anion Gap 3.0 mmol/L 2-11 106 BUN 21 mg/dL 6-24 Calcium 9.4 mg/dL 8.7-10.2 Chloride 103 mmol/L 101-111 Co2 (Carbon Dioxide) 32.0 mmol/L 22-32 Glucose 94 mg/dL 70-105 Potassium 4.3 mmol/L 3.5-5.0 Sodium 138 mmol/L 135-145 BUN/Creatinine Ratio 19.1 8-20 Creatinine 1.1 mg/dL 0.5-1.4 Lipid Profile 10/14/2007 [facility] Cholesterol/HDL 4.53 1- 4.97 (Trig/Chol/HDL) [address] Ratio AVERAGE [place], [place] [id number] [phone] Cholesterol 195 mg/dL Less Than 200 107 Triglyceride 112 mg/dL 40-200 High Density Lipoprotein 43 mg/dL 40-60 Low Density Lipoprotein 130 mg/dL High Less Than 100 108 1 Test Performed by: [facility] - [address] [address] 2 ADDITIONAL INFORMATION This test has been modified from the reimbursement consultant's instructions. Its performance characteristics were determined by [facility] in a manner consistent with CLIA requirements. This test has not been cleared or approved by the U.S. Food and Drug Administration. 3 ADDITIONAL INFORMATION This test has been modified from the reimbursement consultant's instructions. Its performance characteristics were determined by [facility] in a manner consistent with CLIA requirements. This test has not been cleared or approved by the U.S. Food and Drug Administration. 4 ADDITIONAL INFORMATION This test has been modified from the reimbursement consultant's instructions. Its performance characteristics were determined by [facility] in a manner consistent with CLIA requirements. [...] Bhavik Tracey M.D., Ph.D. Test Performed by: [place] [place] [place] [address] 7 Test Performed by: [place] [address] 8 Test Performed by: [address] [place] [address] 9 Test Performed by: [address] [place] [address] 10 FASTING 10 HOUR 11 Because ethnic data is not always readily [...] 15-29 5 Kidney failure <15 (or dialysis) 12 Desirable: <150 Borderline High: 150-199 High: 200-499 Very High: >500 13 Desirable: <200 Borderline High: 200-239 High: >239 14 Low: <40 Desirable: 40-60 High: >60 15 Desirable: <100 Near Optimal: 100-129 Borderline High: 130-159 High: 160-189 Very High: >189 16 FASTING 10 HOUR 17 Because ethnic [...] 160-189 mg/dL Very High: >189 mg/dL 26 SEE RESULT BELOW Name: JAMIE RICHARDS : [address]: Eriberto Barajas MD Acct: [id number] Unit: [id number] AGE: 45 Location: [facility] Re02/24/16 SEX: M Status: REG REF SPEC: [id number] SATURNINO: 02/24/16-1 [facility] DR: Eriberto Barajas MD REQ: [id number] RECD: 02/24/16 STATUS: JAMA BLAIR DR: Adria Soria MD _ SOURCE: GAS ANTRUM SPDESC: ORDERED: Clotest Procedure Result Reported Site Clotest Final 02/25/16- 723 ML Clotest Negative * ML - MAIN LAB ([facility]) . END OF REPORT * ML=Testing performed at Main Lab DEPARTMENT OF PATHOLOGY, [address] [place] [address] Matt Vera M.D. Director [facility] # [id number] 27 [id number] 28 SEE RESULT BELOW Name: JAMIE RICHARDS : [address]: Eriberto Barajas MD Acct: [id number] Unit: [id number] AGE: 45 Location: [facility] Re02/24/16 SEX: M Status: REG REF SPEC: [id number] SATURNINO: 02/24/16-1033 [facility] DR: Eriberto Barajas MD REQ: [id number] RECD: 02/24/16211 STATUS: MISBAH BLAIR DR: Adria Soria MD _ ORDERED: LEVEL IV COMMENTS: [id number] FINAL DIAGNOSIS Gastroesophageal junction, biopsy: -- Squamous [...] performed at Main Lab DEPARTMENT OF PATHOLOGY, [address] [place] [address] Matt Vera M.D. Director [facility] # [id number] 29 FASTING 10 HOUR 30 Because ethnic data is not always readily [...] 15-29 5 Kidney failure <15 (or dialysis) 31 Desirable <150 Borderline high 150-199 High 200-499 Very High >500 32 Desirable <200 Borderline high 200-239 High >239 33 Low <40 Desirable: 40-60 High: >60 34 Desirable: <100 mg/dL Near Optimal: 100-129 mg/dL Borderline High: 130-159 mg/dL High: 160-189 mg/dL Very High: >189 mg/dL 35 Normal Range 180 to 914 Indeterminate [...] PT IS FASTING 45 Test Performed by: [place] [address] [employer]er: Shannen Bravo, Ph.D. 46 Test Performed by: [place] [address] [employer]: Shannen Bravo, Ph.D. 47 Test Performed by: [place] [address] [employer]er: Max Luis III, M.D. 48 Test Performed by: [place] [address] [employer]er: Max Luis III, M.D. 49 -- REFERENCE VALUE -- 44-261 (Normotensive) <400 (Hypertensive) 50 -- REFERENCE VALUE -- 119-451 (Normotensive) <900 (Hypertensive) 51 -- REFERENCE VALUE -- 211-646 (Normotensive) <1300 (Hypertensive) 52 Test Performed by: [address], [place] [address] [employer] Mixer: Max Luis III, M.D. 53 Anion gap [...] 5 Kidney failure <15 (or dialysis) 56 INTERPRETATION %CK-MB < 5% NOT SUPPORTIVE OF DIAGNOSIS OF [place] 5 - <10% INDETERMINATE; SUGGEST SERIAL STUDIES IF CLINICALLY INDICATED 10% OR > CONSISTENT WITH DIAGNOSIS OF [place] . 57 New Reference Range and Interpretation effective 06/12/2002 TnI (ng/ml) INTERPRETATION Less Than 0.06 ng/mL NOT SUPPORTIVE OF DIAGNOSIS OF [place] 0.06 - 0.50 ng/ml INDETERMINATE: SUGGEST SERIAL STUDIES IF CLINICALLY INDICATED. Greater than 0.5 ng/mL CONSISTENT WITH DIAGNOSIS OF [place] . 58 New Reference Range and Interpretation effective 06/12/2002 TnI (ng/ml) INTERPRETATION Less Than 0.06 ng/mL NOT SUPPORTIVE OF DIAGNOSIS OF [place] 0.06 - 0.50 ng/ml INDETERMINATE: SUGGEST SERIAL STUDIES IF CLINICALLY INDICATED. Greater than 0.5 ng/mL CONSISTENT WITH DIAGNOSIS OF [place] . 59 Please note: The following may [...] has been shown to interfere with the [place] method for measuring total bilirubin. Samples from [...] 0.06 ng/mL NOT SUPPORTIVE OF DIAGNOSIS OF [place] 0.06 - 0.50 ng/ml INDETERMINATE: SUGGEST SERIAL STUDIES IF CLINICALLY INDICATED. Greater than 0.5 ng/mL CONSISTENT WITH DIAGNOSIS OF [place] . 69 A metabolite of Naproxen, O-desmethylnaproxen, has been shown to interfere with the [place] method for measuring total bilirubin. Samples from [...] SERUM LEVELS OF PSA MEASURED USING THE YUDI Vivoxid ACCESS HYBRITECH IMMUNOASSAY SHOULD NOT BE INTERPRETED [...] has been shown to interfere with the [place] method for measuring total bilirubin. Samples from [...] < 5% NOT SUPPORTIVE OF DIAGNOSIS OF [place] 5 - <10% INDETERMINATE; SUGGEST SERIAL STUDIES IF CLINICALLY INDICATED 10% OR > CONSISTENT WITH DIAGNOSIS OF [place] . 84 THERAPEUTIC TARGET FOR THE TREATMENT OF DIABETES MELLITUS PATIENTS IS <7% HBA1C, AND IN SELECTIVE PATIENTS <6.0%. PLEASE REFER TO [employer] DIABETIC CARE GUIDELINES FOR FURTHER INFORMATION. 85 Note: Apparently normal individuals of blood group "O" may have somewhat lower Factor VIII and von Willebrand factor (VWF) than individuals of other blood groups, such that (for example) those of group "O" may have VWF antigen as low as 40-50%, whereas normals of nongroup "O" generally have VWF antigen above 60-70%. Suggest clinical correlation. Test Performed by: [facility] Dpt of Lab Med and Pathology [address] [place] [address] [employer] Mixer: Max Luis III, M.D. 86 -- REFERENCE VALUE -- 25-HYDROXY D TOTAL (D2+D3) Optimum levels in the normal population are 25-80 Test Performed by: [facility] [address] [place] [address] [employer] Mixer: Max Luis III, M.D. 87 CHOLESTEROL INTERPRETATION: [...] <15 (or dialysis) 92 Test Performed by: [facility] [address] [place] [id number] [employer]er: Max Luis III, M.D. 93 Less Than 1.0......Low Risk of Cardiovascular Disease 1.0-3.0............Medium Risk (<2 Fold Increase) Greater Than 3.0...High Risk (Approximately 2-Fold Increase) The above guidelines are referenced in "Markers of Inflammation and Cardiovascular Disease: Application to Clinical and Public Health Practice." A Statement for Health Professionals from the Centers for Disease Control and Prevention and the [place] [employer]. (Reference: Circulation 2003 107:499-511) SERUM LEVELS OF HIGH SENSITIVITY C-REACTIVE PROTEIN MEASURED BY THE YUDI LINDSEY LXi 725 SYSTEM SHOULD NOT BE INTERPRETTED [...] than 189 MG/DL 97 Test Performed by: [facility] of [facility] Med and Pathology [address] [place] [address] [employer] Mixer: Max Luis III, M.D. 98 Anion gap measurement may be of limited value in the presence of any alkalosis, especially in a combined acid base disorder. . 99 Note change in reference range as of 04/29/08. The change was based on recommendations from the [place] [employer]. 100 Please note change in [...] acid base disorder. . 105 FASTING 106 Anion gap measurement may be of limited value in the presence of any alkalosis, especially in a combined acid base disorder. . 107 Classification: Desirable . 108 CALCULATED LDL APPROXIMATES THE VALUE OF A DIRECT LDL MEASUREMENT. Classification: Borderline High . Procedures Date Code Description Status 02/24/2016 [id number] Colonoscopy Completed 09/25/2013 Inject/Drain Joint/Bursa Major W/O US Completed 09/25/2013 Inject/Drain Joint/Bursa Major W/O US Completed 12/31/2011 29181 ECHO Stress Test Incl Perf Contiuous ekg Monitoring Completed W/Phys Superv 12/26/2011 83299 ECHO Transthoracic, Real-Time 2D With Doppler And Completed Color Flow 12/25/2011 94545 EKG Tracing & Interpretation Completed 11/01/2008 [id number] Diabetic Foot Exam Completed 2008 [id number] Diabetic Foot Exam Completed Encounters Type Date Location Provider Dx Diagnosis Office Visit 12/12/2018 [facility] Karen Zamarripa MD E03.9 Hypothyroidism, 2:20p Medicine unspecified I10 Essential (primary) hypertension E78.2 Mixed hyperlipidemia K21.9 Gastro-esophageal reflux disease without esophagitis Office Visit 08/20/2018 4:20p [facility] Adria Wyman Z00.01 Encounter for Abi Soria M.D.,FACP general adult [address] medical exam w abnormal findings E03.9 Hypothyroidism, unspecified J32.9 Chronic sinusitis, unspecified I10 Essential (primary) hypertension Z23 Encounter for immunization Office Visit 08/13/2018 9:20a [facility] Adria Wyman H66.91 Otitis media, Abi Soria M.D.,FACP unspecified, right [address] ear J01.90 Acute sinusitis, unspecified E03.9 Hypothyroidism, unspecified Office Visit 08/06/2017 [facility] Guru L04.0 Acute lymphadenitis 11:00a Abi Sanchez M.D. of face, head and [address] neck Office Visit 03/15/2017 [facility] Adria Wyman H66.92 Otitis media, 2:40p Abi Soria M.D.,FACP unspecified, left [address] ear J32.8 Other chronic sinusitis Office Visit 03/06/2017 3:40p [facility] Benita Milian J01.90 Acute sinusitis, Abi LEMUS unspecified [address] Office Visit 01/17/2017 3:40p [facility] Adria Wyman Z00.01 Encounter for Abi Soria general adult [address] Jorge,FACP medical exam w abnormal findings E78.2 Mixed hyperlipidemia E03.9 Hypothyroidism, unspecified I10 Essential (primary) hypertension L40.9 Psoriasis, unspecified Z23 Encounter for immunization Office Visit 08/01/2016 1:40p [facility] Guru J01.90 Acute sinusitis, Abi Sanchez M.D. unspecified E78.2 Mixed hyperlipidemia Office Visit 06/29/2016 3:40p [facility] Guru Sanchez, J20.9 Acute bronchitis, Medicine - M.D. unspecified [address] Office Visit 03/02/2016 3:00p [facility] Sam Pascual, ORBITREAD OPERATOR E78.5 Hyperlipidemia, Medicine - unspecified [address] M79.1 Myalgia R10.12 Left upper quadrant pain Office Visit 11/24/2015 10:30a [facility] Adria Wyman Z00.01 Encounter for Abi Soria M.D.,FACP general adult [address] medical exam w abnormal findings E03.9 Hypothyroidism, unspecified R10.32 Left lower quadrant pain E78.5 Hyperlipidemia, unspecified H93.293 Other abnormal auditory perceptions, bilateral I10 Essential (primary) hypertension Office Visit 02/08/2015 11:00a [facility] Iftikhar Koenig, 465.9 URI Upper Medicine - [place] M.D. [address]piratory [address] Infections Acute Unspec Sites 780.79 Malaise And Fatigue Other 244.9 Hypothyroidism Other Unspec 401.9 Hypertension Unspec 272.0 Hypercholesterolemia Pure 401.1 Hypertension Benign Office Visit 01/07/2015 3:00p [facility] Iftikhar Koenig, 461.8 Sinusitis Acute Medicine - [place] M.D. Other Rd 386.30 Labyrinthitis Unspec 461.9 Sinusitis Acute Unspec Office Visit 07/26/2014 10:30a [facility] Keegan Garrett, ORBITREAD OPERATOR 461.0 Sinusitis Acute Medicine Maxillary 381.4 Otitis Media Acute Or Chronic Nonsuppurative Office Visit 10/08/2013 2:00p [facility] Zainab Gutierrez, V70.0 Examination Medicine N.P. 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 715.36 Osteoarthrosis Localzd Not Spec Prime Or 2Ndy Lower Leg Office Visit 09/17/2013 9:10a [facility] Adria Wyman 473.8 Sinusitis Abi Soria M.D.,FACP Chronic Other 401.9 Hypertension Unspec V04.81 Need For Prophylactic Vaccination & Inoculation/Influenza Office Visit 02/22/2012 1:20p [facility] Adria Wyman 785.0 Tachycardia Unspec Medicine Jorge Soria,FACP 244.9 Hypothyroidism Other Unspec Office Visit 02/01/2012 3:00p [facility] Adria Wyman V70.0 Examination Medicine Jorge Soria,FACP General Medical Routine AT Health Care Facility 427.0 PSVT Paroxysmal Supraventricular Tachycardia 272.0 Hypercholesterolemia Pure 244.9 Hypothyroidism Other Unspec Office Visit 01/18/2012 10:20a Maynard Qutaybeh S. 785.0 Tachycardia Cardiology Jorge Jensen Unspec 401.9 Hypertension Unspec 785.1 Palpitations 272.0 Hypercholesterolemia Pure Office Visit 12/31/2011 3:30p Maynard Qutaybeh S. 785.0 Tachycardia Cardiology Jorge Jensen Unspec 401.9 Hypertension Unspec 785.1 Palpitations 272.0 Hypercholesterolemia Pure Office Visit 12/25/2011 2:45p Maynard Qutaybeh S. 785.0 Tachycardia Cardiology Jorge Jensen Unspec 401.9 Hypertension Unspec 272.0 Hypercholesterolemia Pure 785.1 Palpitations Office Visit 11/27/2011 1:45p [facility] Zainab Matt, 401.9 Hypertension Medicine N.P. Unspec 272.0 Hypercholesterolemia Pure 244.9 Hypothyroidism Other Unspec 382.9 Otitis Media Unspec 785.1 Palpitations 305.00 Alcohol Abuse Unspec Office Visit 11/13/2011 11:00a [facility] Zainab Matt, 382.9 Otitis Media Medicine N.P. 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 272.0 Hypercholesterolemia Pure 286.4 Von Willebrands Disease V04.81 Need For Prophylactic Vaccination & Inoculation/Influenza Office 11/01/2009 DO Not Use Ada Sharma PA 309.0 Adjustment Disorder With Visit 1:00p Scientific Technical Writer AT Depression [facility] Office 10/04/2009 DO Not Use Ada Sharma PA 272.0 Hypercholesterolemia Visit 3:00p Scientific Technical Writer AT Pure [facility] 088.81 Lyme Disease 401.9 Hypertension Unspec 780.79 Malaise And Fatigue Other 472.0 Rhinitis Chronic Office Visit 07/01/2009 10:00a DO Not Use Scientific Technical Writer Ada Sharma PA 401.9 Hypertension AT [facility] Unspec 530.81 Esophageal Reflux 461.9 Sinusitis Acute Unspec Office Visit 12/22/2008 2:30p DO Not Use Scientific Technical Writer Ada Sharma PA 401.9 Hypertension AT [facility] Unspec 530.81 Esophageal Reflux 461.9 Sinusitis Acute Unspec Office Visit 07/12/2008 11:00a DO Not Use Scientific Technical Writer Than[place]art, 461.9 Sinusitis Acute AT [facility] Jorge Myers Unspec 530.81 Esophageal Reflux Office Visit 01/07/2008 4:00p DO Not Use Scientific Technical Writer Ada Sharma PA 401.9 Hypertension AT [facility] Unspec 305.1 Tobacco Use Disorder Office Visit 12/08/2007 4:00p DO Not Use Scientific Technical Writer Ada Sharma PA 401.9 Hypertension AT [facility] Unspec 305.1 Tobacco Use Disorder Office Visit 11/07/2007 2:00p DO Not Use Scientific Technical Writer Ada Sharma PA 782.1 Rash & Other AT [facility] Nonspec Skin Eruption 401.9 Hypertension Unspec Office Visit 10/17/2007 11:00a DO Not Use Scientific Technical Writer Ada Sharma PA 401.9 Hypertension AT [facility] Unspec 272.0 Hypercholesterolemia Pure Plan of Treatment Future Appointment(s):06/19/2019 2:00 pm - Karen Zamarripa MD at [facility] Internal Evcjlknv56/05/2019 - Karen Zamarripa MDE03.9 Hypothyroidism, unspecifiedComments: Stay on the same dose of levothyroxine ; Get test done again in 6-8 [id number] Essential (primary) hypertensionComments:Continue current regimen ; BP slightly high. Please record it at home and bring those readings.Follow up:F/U 6 months; sooner if BP high If BP is good then f/u for carethcrN18.2 Mixed hyperlipidemiaComments:Stay on the same dose of fvmkjlibcsT12.9 Gastro- esophageal reflux disease without esophagitisComments:Try to skip the omeprazole on alternate days; go slowonce you reach the end of the script let me know if you are willing to try a lower dose of the medication.
[2019-01-11 11:46] LABS: ABS Basophils 0.1 10^3/ul (0-0.2); ABS Eosinophils 0.3 10^3/ul (0-0.6); ABS Lymphocytes 1.9 10^3/ul (1.0-4.8); ABS Neutrophils 5.5 10^3/ul (1.5-7.7); Eosinophil % 3.7 %; Hematocrit 47 % (42-52); Hemoglobin 16.1 g/dL (14.0-18.0); Lymphocyte % 21.2 %; Mean Corpuscular HGB Conc 34 g/dL (31-36); Mean Corpuscular Hemoglobin 29 pg (27-31); Mean Corpuscular Volume 85 fL (80-94); Mean Platelet Volume 9.5 fL (7.4-10.4); Platelet Count 274 10^3/uL (150-450); Red Blood Count 5.52 10^6 /uL (4.18-5.48); Red Cell Distribution Width 13 % (10.5-15); White Blood Count 8.8 10^3/uL (3.5-10.8)
[2019-01-11] MEDS ORDERED: Aspirin 81 mg CHEW TAB* 81 MG TAB.CHEW PO ONE (12:01)
[2019-01-11 12:04] LABS: Albumin/Globulin Ratio 1.8 (1-3); BUN/Creatinine Ratio 15.7 (8-20); EGFR African American 82.1 (>60); EGFR Non-African American 67.9 (>60); Globulin 2.8 g/dL (2-4); Magnesium 2.4 mg/dL (1.9-2.7); Potassium 3.7 mmol/L (3.5-5.0); Total Bilirubin 0.8 mg/dL (0.2-1.0); Total Protein 7.8 g/dL (6.4-8.9)
[2019-01-11 12:09] LABS: CKMB ng/mL 1.9 ng/mL (0.6-6.3)
[2019-01-11 12:43] LABS: TSH (Thyroid Stimulating Horm) 3.05 mcIU/mL (0.34-5.60)
[2019-01-11 14:17] VITALS: BP 119/87
== END 2019-01-11 14:29 | disposition home or self-care (01) ==
LOC: ED 10:45
DX: R07.89 Other chest pain (principal); R00.0 Tachycardia, unspecified; I10 Essential (primary) hypertension; E78.00 Pure hypercholesterolemia, unspecified; E07.9 Disorder of thyroid, unspecified; K21.9 Gastro-esophageal reflux disease without esophagitis; Z82.49 Family history of ischemic heart disease and other diseases of the circulatory system; F41.9 Anxiety disorder, unspecified
CPT/HCPCS: 36415; 71045; 80053; 82553; 83605; 83735; 83880; 84443; 84484; 85025; 93005; 99283; A9270-GY

== ENCOUNTER → 2019-08-07 10:03 | Day surgery (SDC) | payer BC ==
[~2019-08-07 10:03] MED LIST: Cholecalciferol TAB* 1000 UNITS PO SCH; Clobetasol 0.05% OINT* 30 GM TUBE TOPICAL SCH; Diazepam TAB(*) 5 MG ONE; Fluticasone NASAL SPRAY 50MCG* 16 gm SPRAY BTL BOTH NARES SCH; Heparin 2 UNITS/ML IVPREMIX* 2,000 ML IV ONE; Heparin(*) 1000 UNIT/ML 10 ML VIAL CATH LAB IV ONE; Iohexol 350 (CONTRAST) 200 ML MDV IV ONE; Levothyroxine TAB* 112 MCG TAB PO SCH; Lidocaine 1% INJ* 10 MG/ML 30 ML SDV ONE; Lisinopril/HCTZ 10/12.5(NF) TAB PO SCH; Metoprolol Succinate XL TAB* 25 MG PO SCH; Midazolam* 1 MG/ML 5 ML VIAL (5 MG) ONE; NON FORMULARY MED* (Multivitamin [Multivitamins] 1 CAP) PO SCH; NS 0.9% 1000 ML** 1,000 ML IV SCH; Omeprazole CAP (NF) 20 MG CAP.DR PO SCH; Rosuvastatin (NF) 5 MG TAB PO SCH; Ticagrelor* 90 MG TAB PO ONE; Ticagrelor* 90 MG TAB PO SCH; VERAPAMIL 2.5 MG/ML 2 ML VIAL ** 5 mg/2 ml ONE; diPHENhydraMINE PO* 25 MG ONE; fentaNYL* 50 MCG/ML 2 ML VIAL (100 MCG VIAL) ONE; nitroGLYCERIN DRIP* 25,000 MCG/250 ML BTL ONE
[2019-08-07 14:11] VITALS: BP 125/80
--- NOTE | 2019-08-07 16:25 | CATH ---
CC: Dr. Jensen, [facility]; Karen Zamarripa MD; Uri Ramirez MD, [facility], [facility] in [facility] CARDIAC CATHETERIZATION REPORT: DATE OF PROCEDURE: 08/07/19 INDICATION FOR THE PROCEDURE: Asked to perform cardiac catheterization by Dr. Jensen with patient with progressive angina pectoris over the last 6 months with a subsequent CTA of the coronary arteries suggesting a critically stenosed right coronary artery and moderate disease in the LAD and circumflex. PROCEDURE: Coronary arteriography, left heart catheterization, left ventriculography. APPROACH UTILIZED: The right radial artery was assessed by and found to be acceptable for an approach in the holding area and as such this was the approach utilized. PRE-CARDIAC CATHETERIZATION LABORATORY RESULTS: Revealed a hemoglobin and hematocrit of 15.5 and 44 with platelet count of 267,000. BUN and creatinine 18 and 1.1. Sodium 134, potassium 4.2, chloride 99, bicarb not reported. EQUIPMENT UTILIZED: 1. Right radial sheath was a 6-Cuban Glidesheath slender. 2. Diagnostic coronary catheter with a 5-Cuban TIG4 curved catheter. 3. The diagnostic guidewire was a 260 length Gomez curved guidewire. 4. The left heart catheterization catheter was a 5-Cuban TIG short radial catheter. 5. The closure device utilized was a regular length Vasc Band by [employer]. MEDICATIONS: Given during the procedure included the radial artery cocktail of 3000 units of heparin, 300 mcg of nitroglycerin, and 3 mg verapamil, Xylocaine locally and a total of 2 mg of Versed intravenously. DESCRIPTION OF PROCEDURE: The patient was brought to the cardiovascular laboratory where a formal time-out was performed. He was prepped and draped in sterile fashion. The right radial artery area was anesthetized with 1% lidocaine and under ultrasound guidance. The right radial artery was cannulated and the sheath was placed. Coronary arteriography and left heart catheterization was performed. Following that, left ventriculography was performed utilizing a total of 28 cc of Omnipaque dye at a rate of 14 cc per second. The catheter was then pulled across the aortic valve to recheck gradient. At the end of the case, the catheter and sheath were removed after the pictures were reviewed and hemostasis was obtained with a Vasc Band. The reverse Gomezu was a B. The total contrast use was 75 cc of Omnipaque dye. The radiation exposure included 6 minutes of fluoro time. The air kerma radiation was 1237 milligray. The DAP radiation was 7617 microgray per meter squared. RESULTS: HEMODYNAMIC DATA: Left heart catheterization: Central aortic pressure recorded at 124/76 with mean of 97. Left ventricular pressure was 126 over left ventricular end diastolic of 12. Of note, there was fling noted, which made the recorded numbers erroneous. LEFT VENTRICULOGRAPHY: Performed in the TRACEY projection revealed normal overall left ventricular contractility with ejection fraction noted to be 55% to 60%. There was minimal if any proximal inferior wall hypokinesis. No significant mitral regurgitation was noted. CORONARY ARTERIOGRAPHY: A. Left coronary artery: 1. Left main: Widely patent, with no disease of significance noted. 2. Left anterior descending artery: The left anterior descending artery showed minimal luminal irregularities in its proximal portion with no areas of narrowing of significance throughout the whole length of the vessel or its diagonal branches. 3. Circumflex artery - a nondominant vessel supplying a high first obtuse marginal branch followed by a mid obtuse marginal branch. After the high obtuse marginal branch, there was an area of 65% narrowing seen at the proximal to mid portion. The rest of the circumflex showed no significant disease. 4. Collateral blood flow to the right coronary artery - present from both the left anterior descending artery septal perforators and the circumflex obtuse marginal branches retrograde filling, a dominant right coronary artery of [id number] size. B. Right coronary artery - the right coronary artery proximally had the appearance of a total occlusion perhaps chronic in nature with bridging collaterals with very faint slow within its proximal portion GARIMA 0 to 1. Of note, there was still a gap that was seen within the proximal portion. The filling of the right coronary artery only slowly made it down to the beginning portion of the inferior surface of the heart. OVERALL ASSESSMENT: Significant obstructive coronary artery disease with probable chronic total occlusion with bridging collaterals as noted above as well as collateral blood flow from the left coronary artery system. Moderate disease seen within the circumflex mid segment. At this point and time, I had discussed the case with Dr. Uri feng at [facility] who urged me not to attempt re- wire the right coronary artery as there may be microchannels that may get obstructed with standard guidewires as opposed to specialized [employer] guidewires that he has available there. I explained that the patient was on single drug therapy at this point and just started last week and is feeling a little bit better and as such he recommended trying to maximize medical management within the next week to 2 weeks and see how he does and as such we will start him on low-dose metoprolol succinate 12.5 mg a day and hopefully he will adapt to that and may be able to be advance over time. He has a followup appointment with Dr. Jensen next week for a wound check in addition to medical management and consideration for whether or not an interventional referral to Dr. Uri Ramirez up at [facility] should be pursued. Dr. Ramirez felt that if the patient fails medical management given his young, it would be worth an attempt to try to get through this with a specialized wires at [facility]. This information will be shared with Dr. Jensen, who is off today and back next week. In the meantime, we will also double his rosuvastatin to 10 mg a day. We will also start the patient on Brilinta 90 mg twice a day after having given him a loading dose of 180 mg today so that he will be on dual antiplatelet therapy over the next week to 2 weeks in case the decision is made to try to intervene. I explained increased risks of bleeding because of this and he understood that and took it under advisement. His is a specialist at the cardiac rehab center and she understood the information we gave him as well. [id number]/[facility] #: [id number] MTDD
== END | disposition home or self-care (01) ==
LOC: CHICATH 10:03
PROVIDERS: ATTEND Internal Medicine Cardiovascular Disease
DX: I25.10 Atherosclerotic heart disease of native coronary artery without angina pectoris (principal); R07.9 Chest pain, unspecified; R94.39 Abnormal result of other cardiovascular function study; R06.02 Shortness of breath; K21.9 Gastro-esophageal reflux disease without esophagitis; E78.00 Pure hypercholesterolemia, unspecified; E03.9 Hypothyroidism, unspecified; I10 Essential (primary) hypertension; Z87.891 Personal history of nicotine dependence; E66.9 Obesity, unspecified; Z82.49 Family history of ischemic heart disease and other diseases of the circulatory system
CPT/HCPCS: 76937; 85347; 93454; 99156; 99157; A9270-GY; J1644; J2250; J3010